=== PATIENT | male | born 1955 | race Hispanic/Latino ===

== ENCOUNTER 2017-04-03 18:33 | Inpatient (IN) | payer OTHER ==
[2017-04-03] MEDS ORDERED: NACL 0.9% 1000 ML 1,000 ML IV ONE ×2 (18:39→21:19)
[2017-04-03] MEDS ORDERED: ZOFRAN IV ONE ×2 (18:40→23:10)
--- NOTE | 2017-04-03 18:44 | Emergency Department Report ---
Entered by ZAHRA DAY, acting as scribe for JOSIE GOINS NP. Chief Complaint: Nausea/Vomiting/Diarrhea Stated Complaint: CANT TALK/WALK/SWEATS Time Seen by Provider: 04/03/17 18:38 - HPI History of Present Illness: 61 y/o male presents with n/v at 1730 after working out in the sun all day today. Pt is actively vomiting here in ED. Sx include diaphoresis. - ROS Review of Systems: +n/v +diaphoresis - Exam Physical Exam: Pt is actively vomiting. A and O x4, no focal weakness MSE screening note: Focused history and physical exam performed. Due to findings the following was ordered: ekg, labs ED Disposition for MSE Condition: Stable This documentation as recorded by the scribe,ZAHRA DAY,accurately reflects the service I personally performed and the decisions made by ,JOSIE GOINS , ORDER ENTRY SPECIALIST.
[2017-04-03 19:23] LABS: Basophils % (Auto) 0.7 % (0.0-1.8); Eosinophils % (Auto) 0.3 % (0.0-4.3); Hematocrit 49.2 % (35.5-45.6); Hemoglobin 16.5 gm/dl (11.8-15.2); Mean Corpuscular HGB Conc 34 % (32-34); Mean Corpuscular Hemoglobin 31 pg (28-32); Mean Corpuscular Volume 91 fl (84-94); Platelet Count 225 K/mm3 (140-440); Red Blood Count 5.39 M/mm3 (3.65-5.03); Red Cell Distribution Width 13.1 % (13.2-15.2); White Blood Count 17.4 K/mm3 (4.5-11.0)
[2017-04-03 19:35] LABS: Alanine Aminotransferase 24 units/L (7-56); Albumin 4.9 g/dL (3.9-5); Albumin/Globulin Ratio 1.4 %; Alkaline Phosphatase 124 units/L (35-129); Anion Gap 29 mmol/L; Blood Urea Nitrogen 12 mg/dL (9-20); Calcium 10.6 mg/dL (8.4-10.2); Carbon Dioxide 19 mmol/L (22-30); Chloride 100.7 mmol/L (98-107); Creatine Kinase 266 units/L (55-170); Glucose 140 mg/dL (75-100); Lipase 17 units/L (13-60); Potassium 4.3 mmol/L (3.6-5.0); Sodium 144 mmol/L (137-145); Total Protein 8.3 g/dL (6.3-8.2)
[2017-04-03] MEDS ORDERED: ZOFRAN ONE (20:53)
[2017-04-03 21:41] LABS: Bilirubin,Urine NEG (Negative); Blood,Urine NEG (Negative); Ketones,Urine 20 mg/dL (Negative); Leukocyte Esterase,Urine NEG (Negative); Mucus,Urine 1+ /HPF; Nitrite,Urine NEG (Negative); Urobilinogen,Urine < 2.0 mg/dL (<2.0)
--- NOTE | 2017-04-03 22:29 | Cat Scan Report ---
FINAL REPORT PROCEDURE: CT ABDOMEN PELVIS W CON TECHNIQUE: Computerized axial tomography of the abdomen and pelvis was performed after the IV injection of iodinated nonionic contrast. HISTORY: abd pain COMPARISON: No prior studies are available for comparison. FINDINGS: Mild hypoventilatory changes are seen in the lower lungs. A rounded density is seen in the right lung base on the axial imaging but appears more linear on reconstructed sagittal and coronal images. It is probably atelectasis. Other mild areas of atelectasis are seen in the right middle lobe, left lingular, and both CP angles. There is likely a small hiatus hernia and there could be mild wall edema within the distal esophagus as can be seen with esophagitis. Spleen appears normal. There is fatty infiltration of the liver. There is a vague area of hyperdensity seen in the left hepatic lobe that could be 1.8 x 0.9 cm hemangioma. May be focal area of fatty sparing. A similar area is seen in the inferior left hepatic lobe near the gallbladder fossa measuring 1.1 cm in greatest dimension. Correlation with ultrasound appearance may be useful. Gallbladder wall appears slightly prominent and cholecystitis is not completely excluded. No gallstones or biliary ductal dilation is seen. Pancreas appears normal. Adrenal glands and abdominal aorta are normal in size. No renal abnormality is seen. Mild changes of gastritis in the region of the antrum of the stomach are not excluded. Normal appendix is seen. There is suggestion of mild wall thickening in the rectum which could be from proctitis. It may just be from underdistention. No other colonic wall thickening is seen. Bladder appears normal. Prostate gland appears normal in size. No small bowel dilation is seen. IMPRESSION: Possible wall edema is seen within the distal esophagus and antrum of the stomach. Findings of esophagitis and gastritis are not excluded. Correlation with upper GI series or endoscopy is recommended. Two hyperdense areas are seen in the left hepatic lobe and are probably areas of focal fatty sparing or hemangioma. Further evaluation with ultrasound is recommended. Gallbladder is not fully distended and wall appears mildly thickened. Cholecystitis is not excluded which could be evaluated with ultrasound, also. There may be rectal wall thickening as can be seen with proctitis. Appearance could be artifactual and due to underdistention of the rectum, though.
[2017-04-03] MEDS ORDERED: DILAUDID IV ONE (23:10)
[2017-04-04] MEDS ORDERED: LEVAQUIN 750MG/150ML 750 MG/150 ML BAG IV ONE (00:22)
--- NOTE | 2017-04-04 00:22 | Emergency Department Report ---
HPI - General Chief Complaint: Neuro Symptoms/Deficit Time Seen by Provider: 04/03/17 18:38 - HPI HPI: Patient complains of generalized weakness, nausea, vomiting and abdominal pain after walking outside all day today. Patient also complained of cramping all over. Patient does have a history of blood pressure, diabetes. He stated that he is compliant with medication and never has prior similar symptoms. ED Past Medical Hx - Past Medical History Previous Medical History?: Yes Additional medical history: Back pain, Neck pain - Surgical History Past Surgical History?: No - Social History Smoking Status: Current Every Day Smoker - Medications Home Medications: Home Medications Medication Instructions Recorded Confirmed Last Taken Type No Known Home Medications [No 04/04/17 04/04/17 Unknown History Reported Home Medications] ED Review of Systems ROS: Stated complaint: CANT TALK/WALK/SWEATS Other details as noted in HPI Physical Exam - Physical Exam Vital Signs: Vital Signs 04/03/17 04/03/17 04/03/17 18:50 20:34 20:40 Temperature 97.6 F Pulse Rate 105 H Respiratory 22 Rate Blood Pressure 143/103 156/97 Blood Pressure [Right] O2 Sat by Pulse 99 100 94 Oximetry 04/03/17 04/03/17 04/03/17 20:50 20:58 21:00 Temperature Pulse Rate 67 Respiratory 20 Rate Blood Pressure 182/113 168/96 Blood Pressure 182/113 [Right] O2 Sat by Pulse 99 99 99 Oximetry 04/03/17 04/03/17 04/03/17 21:10 21:20 21:30 Temperature Pulse Rate Respiratory Rate Blood Pressure 168/96 142/87 170/94 Blood Pressure [Right] O2 Sat by Pulse 92 96 98 Oximetry 04/03/17 04/03/17 04/03/17 21:40 21:53 22:06 Temperature Pulse Rate 84 Respiratory Rate Blood Pressure 142/87 142/87 Blood Pressure [Right] O2 Sat by Pulse 93 99 Oximetry 04/03/17 04/03/17 04/03/17 22:10 22:20 22:30 Temperature Pulse Rate Respiratory Rate Blood Pressure 142/87 175/111 132/87 Blood Pressure [Right] O2 Sat by Pulse 100 98 79 L Oximetry 04/03/17 04/03/17 04/03/17 22:40 22:50 23:30 Temperature Pulse Rate Respiratory 18 20 Rate Blood Pressure 170/94 177/118 Blood Pressure [Right] O2 Sat by Pulse 95 99 Oximetry Physical Exam: Gen. alert and oriented 3 in no distress Head atraumatic normocephalic Eyes PERR LA EOMI Chest regular rate and rhythm normal S1-S2 lungs clear bilaterally Abdomen soft nondistended Back no point tenderness paravertebral tenderness Neuro no focal deficit. Psych normal mood. ED Course Vital Signs 04/03/17 04/03/17 04/03/17 18:50 20:34 20:40 Temperature 97.6 F Pulse Rate 105 H Respiratory 22 Rate Blood Pressure 143/103 156/97 Blood Pressure [Right] O2 Sat by Pulse 99 100 94 Oximetry 04/03/17 04/03/17 04/03/17 20:50 20:58 21:00 Temperature Pulse Rate 67 Respiratory 20 Rate Blood Pressure 182/113 168/96 Blood Pressure 182/113 [Right] O2 Sat by Pulse 99 99 99 Oximetry 04/03/17 04/03/17 04/03/17 21:10 21:20 21:30 Temperature Pulse Rate Respiratory Rate Blood Pressure 168/96 142/87 170/94 Blood Pressure [Right] O2 Sat by Pulse 92 96 98 Oximetry 04/03/17 04/03/17 04/03/17 21:40 21:53 22:06 Temperature Pulse Rate 84 Respiratory Rate Blood Pressure 142/87 142/87 Blood Pressure [Right] O2 Sat by Pulse 93 99 Oximetry 04/03/17 04/03/17 04/03/17 22:10 22:20 22:30 Temperature Pulse Rate Respiratory Rate Blood Pressure 142/87 175/111 132/87 Blood Pressure [Right] O2 Sat by Pulse 100 98 79 L Oximetry 04/03/17 04/03/17 04/03/17 22:40 22:50 23:30 Temperature Pulse Rate Respiratory 18 20 Rate Blood Pressure 170/94 177/118 Blood Pressure [Right] O2 Sat by Pulse 95 99 Oximetry ED Medical Decision Making - Lab Data Result diagrams: 04/05/17 06:00 04/05/17 06:00 Critical care attestation.: If time is entered above; I have spent that time in minutes in the direct care of this critically ill patient, excluding procedure time. ED Disposition Clinical Impression: Severe dehydration, Abdominal pain Disposition: OP ADMIT IP TO THIS HOSP Is pt being admited?: Yes Does the pt Need Aspirin: No Condition: Stable
[2017-04-04] MEDS ORDERED: DILAUDID IV PRN (01:19)
[2017-04-04] MEDS ORDERED: ZOFRAN IV PRN (01:20)
[2017-04-04] MEDS ORDERED: TYLENOL PO PRN (01:21)
[2017-04-04] MEDS ORDERED: FLAGYL 500 MG/100 ML 500 MG/100 ML BAG IV SCH (02:00)
[2017-04-04] MEDS ORDERED: D50W (25GM) IV PRN (05:50)
[2017-04-04] MEDS: NACL 0.9% 1000 ML 1,000 ML IV SCH ×2 (07:55→18:39)
--- NOTE | 2017-04-04 08:08 | History and Physical Report ---
CHIEF COMPLAINT: Nausea, vomiting. Other complaints include abdominal pain. HISTORY OF PRESENTING ILLNESS: The patient is a 61-year-old male who was having nausea and vomiting with abdominal pain and presented to the Emergency Room and he said he has been walking outside the house all day. He started feeling generalized body ache with nausea, vomiting and abdominal pain. There was no history of fever; however, denies history of diaphoresis and no history of chest pain or shortness of breath. The patient presented to the Emergency Room. PAST MEDICAL HISTORY: Pertinent for hypertension and diabetes mellitus. PAST SURGICAL HISTORY: Unremarkable. FAMILY HISTORY: Noncontributory. SOCIAL HISTORY: The patient does not smoke, does not drink alcohol, and does not use illicit drug. MEDICATIONS: The patient's home medications are not known. ALLERGIES: The patient is allergic to codeine. REVIEW OF SYSTEMS: CONSTITUTIONAL: There is no fever, no chills. Diaphoresis present. HEENT: There is no headache or sore throat. CARDIOVASCULAR SYSTEM: There is no chest pain or orthopnea. RESPIRATORY SYSTEM: There is no shortness of breath or cough. GASTROINTESTINAL SYSTEM: There is nausea, vomiting, and also diarrhea. MUSCULOSKELETAL SYSTEM: There is generalized body pain with no joint swelling. NEUROLOGICAL SYSTEM: There is no numbness, no dizziness, no altered mental status. DERMATOLOGICAL SYSTEM: There is no skin rash or itching. GENITOURINARY SYSTEM: There is no dysuria, hematuria, or flank pain. Rest of system review is normal. PHYSICAL EXAMINATION: GENERAL: At the time of exam, the patient was found to be alert, oriented x3 and not in acute distress. VITAL SIGNS: Shows normal temperature with pulse of 67, respirations 13, blood pressure , O2 sat of 98% on room air. HEENT: Showed pupils to be equal, round, reactive to light, and accommodation. Extraocular muscles are intact. NECK: Supple with no JVD or carotid bruit. CARDIOVASCULAR SYSTEM: Show first and second heart sounds with no gallops or murmur. RESPIRATORY SYSTEM: Show good air entry on both sides of the lung with no abnormal breath sounds. GASTROINTESTINAL SYSTEM: Show abdomen to be full, soft, nontender with no organomegaly or rigidity. NEUROLOGICAL: Showed no focal deficit. MUSCULOSKELETAL SYSTEM: Show no joint swelling or tenderness. DERMATOLOGICAL SYSTEM: Show no skin rash. GENITOURINARY SYSTEM: Showing no costovertebral angle tenderness. PERTINENT LABORATORY: The patient had urinalysis done that came back unremarkable. The patient's chemistry shows slightly elevated total CPK of 266, normal transaminases. Lactic acid level was normal. The patient's CO2 showed a low value of 19 and renal function test came back unremarkable. Glucose level was 140 and the patient's CBC showed a high white count of 17,400 with slightly elevated hemoglobin of 16.5 and high hematocrit of 49.2. IMAGING STUDIES: The patient had CT of the abdomen done that shows colitis. DIAGNOSES: 1. Colitis. 2. Dehydration. PLAN: The patient will be admitted to medical floor and will be on IV Levaquin 750 mg daily. Also, the patient will be on IV metronidazole 500 mg q. 8 hour and will be on IV normal saline with running at 125 mL an hour. The patient will be on IV Zofran 4 mg every 8 hours for nausea and vomiting and will have a CBC checked this morning. The patient will also be on Tylenol 650 mg by mouth every 4 hours for fever and headache and will be on Accu-Chek a.c. and at bedtime, followed by low-dose sliding scale. The patient will also be on 1800-calorie carbohydrate consistent diet. JOB# [id number] OCN/NTS
--- NOTE | 2017-04-04 08:18 | XRay Report ---
AP CHEST: HISTORY: Shortness of breath Normal heart and mediastinal structures. The lungs are mildly hyperinflated but clear. No pleural effusion or pneumothorax. Normal bony structures. No significant change since 02/15/15. IMPRESSION: Mild hyperinflation. No acute process.
[2017-04-04] MEDS: NOVOLOG SUB-Q SCH ×3 (08:42→17:17)
[2017-04-04] MEDS: LEVAQUIN 750MG/150ML 750 MG/150 ML BAG IV SCH (10:34)
[2017-04-04] MEDS: HEPARIN SUB-Q SCH ×2 (10:35→22:01)
--- NOTE | 2017-04-04 11:45 | Admit Criteria Form ---
Admission Criteria Documentation: ABDOMINAL PAIN Clinical Indications for Admission to Inpatient Care (Place 'X' for any and all applicable criteria): Admission is indicated for ANY ONE of the following(1)(2)(3)(4)(5): [X]I. Inpatient admission required rather than observation care (Also use Abdominal Pain: Observation Care, as appropriate) because of ANY ONE of the following: [ ]a) Severe pain requiring acute inpatient management [ ]b) Identification of etiology/finding that requires inpatient care (eg, aortic dissection, free air) [ ]c) Absent bowel sounds with complete ileus(6) [ ]d) Suspected toxic megacolon [ ]e) Severe electrolyte abnormalities requiring inpatient care [ ]f) High fever or infection requiring inpatient admission as indicated by ANY ONE of following(7)(8): [ ] i) Appropriate outpatient or observational care antimicrobial treatment unavailable, not effective, or not feasible [ ] ii) Documented bacteremia [ ] iii) Temperature > 104.9 degrees F (oral) [ ] iv) T >103.1 F (oral) or < 96.8 F(rectal) that does not respond to all emergency treatment measures [ ]g) Signs of intestinal obstruction [B] [ ]h) Hemodynamic instability [X]i) IV fluid to replace significant ongoing losses (greater than 3 L/m2 per day) (12)(13) [ ]j) Percutaneous or open drainage (eg, abscess, biliary tract ) procedures [ ]k) Parenteral nutrition regimen that must be implemented on inpatient basis [ ]l) Other condition,treatment or monitoring requiring inpatient admission. [ ]II. Peritoneal signs present [ ]III. Surgery needed that cannot be performed on an ambulatory basis. [ ]IV. Evaluation requires patient to not eat or drink for extended period ( eg, more than 24 hours). [ ]V. Contraindications and/or Inappropriate clinical situations for Observational Care in patients with abdominal pain, when ANY ONE of the following is required: [ ]a) Thorough evaluation is required to prevent catastrophic events due to delays in diagnosing (e.g.Mesenteric ischemia) 1,3 [ ]b) Patient with severe pathology or with chronic symptoms unlikely to improve in the ED stay (3) [ ]. General contraindications and/or Inappropriate clinical situations for Observational Care in patients with abdominal pain, when ANY ONE of the following is required: [ ]a) Prediction of prolongation of LOS based on ANY ONE of the following may be considered as a contraindication for observational care 2, 3, 4, 5, 6, 7, 8, 9, 10, 11 [ ]i) Age > 65 yrs. [ ]ii) Patient arriving by ambulance [ ]iii) Patient with high acuity [ ]iv) Patient requiring vital sign monitoring [ ]v) Patient on IV medication [ ]b) Systolic blood pressures 180mmHg 3,12 [ ]c) Patient with altered mental status including delirium and other alteration of consciousness, (3) [ ]d) Patient whose discharge disposition will be to a long term home or rehabilitation home should not be managed in Emergency Department Observation Unit. CMS rule requires 3 days hospital stay before such placement.3,13 [ ]e) Patient with failure to thrive due to broad array of etiologies 3,16,17 [ ]f) Inability to ambulate 3,14 Extended stay beyond goal length of stay may be needed for(2)(3): [ ]a) Persistent abdominal pain with suspected intra-abdominal process [ ]b) Diagnosed condition requiring continued stay (e.g., pancreatitis, complicated diverticulitis) [ ]c) Surgery (e.g., colectomy) The original [facility] content created by [employer] has been revised. The portions of the content which have been revised are identified through the use of italic text or in bold, and [facility] has neither reviewed nor approved the modified material.All other unmodified content is copyright [facility]. Please see references footnoted in the original [facility] edition 2016 Admission Criteria Met: Yes
--- NOTE | 2017-04-04 13:30 | Event Note ---
Date: 04/04/17 Patient seen and examined and monitored distress chest x-ray reviewed , no further nausea vomiting this time. We'll monitor patient for the next 24 hour assistance of counseling provided to the patient the need to quit tobacco use 15 minutes was spent on counseling. Patient verbalized understanding and admission at this time is stable at this discharge in a.m. if remains stable
[2017-04-05] MEDS: NACL 0.9% 1000 ML 1,000 ML IV SCH (02:29)
[2017-04-05 06:24] LABS: Mean Corpuscular HGB Conc 33 % (32-34); Mean Corpuscular Hemoglobin 31 pg (28-32); Mean Corpuscular Volume 92 fl (84-94); Platelet Count 159 K/mm3 (140-440); Red Blood Count 4.26 M/mm3 (3.65-5.03); Red Cell Distribution Width 13.6 % (13.2-15.2); White Blood Count 9.8 K/mm3 (4.5-11.0)
[2017-04-05 06:45] LABS: Anion Gap 17 mmol/L; BUN/Creatinine Ratio 18.75; Blood Urea Nitrogen 15 mg/dL (9-20); Calcium 8.4 mg/dL (8.4-10.2); Carbon Dioxide 24 mmol/L (22-30); Chloride 107.9 mmol/L (98-107); Glucose 81 mg/dL (75-100); Potassium 4.6 mmol/L (3.6-5.0); Sodium 144 mmol/L (137-145)
[2017-04-05] MEDS: NOVOLOG SUB-Q SCH (07:38)
[2017-04-05] MEDS: HEPARIN SUB-Q SCH (09:20)
[2017-04-05] MEDS: LEVAQUIN 750MG/150ML 750 MG/150 ML BAG IV SCH (09:21)
--- NOTE | 2017-04-05 10:40 | Discharge Summary ---
Providers - Providers Date of Admission: 04/04/17 00:23 Date of discharge: 04/05/17 Attending physician: JUANCHO BARRY MD Primary care physician: [facility] ATTENDANT Hospitalization Reason for admission: nausea vomiting with generalized weakness Condition: Stable Hospital course: Patient is a 61-year-old male with past medical history of hypertension and diabetes mellitus who presented to the hospital with nausea vomiting and abdominal pain after walking all day outside and also was significantly weak. On admission, patient had imaging study of the abdomen which showed some colitis , he was treated with fluids, abx and is much improved and ready for discharge. Discharge Diagnosis Colitis Hypertension Diabetes Mellitus Nausea and Vomiting Dehydration Disposition: DC- TO HOME OR SELFCARE Time spent for discharge: 35 mins Core Measure Documentation - Palliative Care Palliative Care/ Comfort Measures: Not Applicable - Core Measures Any of the following diagnoses?: none - VTE Discharge Requirements Deep Vein Thrombosis/Pulmonary Embolism Present on Admission: No Exam - Constitutional Vitals: Temp Pulse Resp BP Pulse Ox 99.8 F H 55 L 20 131/77 97 04/05/17 08:00 04/05/17 08:00 04/05/17 09:31 04/05/17 08:00 04/05/17 08:00 General appearance: Present: no acute distress, well-nourished - EENT Eyes: Present: PERRL, EOM intact ENT: hearing intact, clear oral mucosa - Neck Neck: Present: supple, normal ROM - Respiratory Respiratory effort: normal Respiratory: bilateral: CTA - Cardiovascular Rhythm: regular Heart Sounds: Present: S1 & S2 - Extremities Extremities: no ischemia, pulses intact, pulses symmetrical Peripheral Pulses: within normal limits - Abdominal General gastrointestinal: Present: soft, non-tender, non-distended - Integumentary Integumentary: Present: clear, warm - Musculoskeletal Musculoskeletal: strength equal bilaterally - Psychiatric Psychiatric: appropriate mood/affect - Neurologic Neurologic: CNII-XII intact - Allied Health Allied health notes reviewed: nursing Plan Activity: advance as tolerated, fall precautions Diet: regular Additional Instructions: age appropraite screening to be arranged by PCP Follow up with: PRIMARY CAREMD [Primary Care Provider] - 3-5 Days
[2017-04-05 11:17] VITALS: BP 153/78
== END 2017-04-05 12:30 | disposition home or self-care (01) | DRG 392 ==
LOC: ED 18:33 → 4A 04-04 00:23 → 3A 04-04 01:43
PROVIDERS: ADMIT Internal Medicine; ATTEND Internal Medicine
DX: K52.9 Noninfective gastroenteritis and colitis, unspecified (principal); I10 Essential (primary) hypertension; E11.9 Type 2 diabetes mellitus without complications; E86.0 Dehydration; Z88.8 Allergy status to other drugs, medicaments and biological substances
CPT/HCPCS: 36415; 71010; 74177; 80048; 80053; 81001; 82140; 82550; 82962; 83036; 83690; 85025; 85027; 87040; 93005; 93010; 96361; 96374; 96375; 96376; J1170; J1644; J1956; J2405; J7030; Q9967

== ENCOUNTER 2017-07-18 20:55 | Emergency (ER) | payer SELFPAY ==
[2017-07-19] MEDS ORDERED: TYLENOL ONE (05:50)
[2017-07-19] MEDS ORDERED: REGLAN ONE (05:50)
--- NOTE | 2017-07-19 06:24 | Emergency Department Report ---
Chief Complaint: Neck Pain/Injury Stated Complaint: NECK PAIN Time Seen by Provider: 07/19/17 05:43 - HPI History of Present Illness: 61-year-old male presents with complaint of severe headache radiating from the left side of his neck up to the back of his head. Patient states that this headache is extreme and very uncomfortable. Is awake alert and oriented 3. Denies paresthesias but states that it is pulsatile and getting progressively worse. - ROS Review of Systems: Worsening headache for several days - Exam Vital Signs: Vital Signs 07/19/17 00:36 Temperature 97.2 F L Pulse Rate 83 Respiratory 14 Rate Blood Pressure 121/78 O2 Sat by Pulse 95 Oximetry Physical Exam: Patient is awake alert and oriented 3 pupils equally reactive to light strength 5 out of 5 bilateral upper and lower extremities MSE screening note: Focused history and physical exam performed. Due to findings the following was ordered: Screening Assessment/Plan/Differential Dx: Headache with associated neck pain; differentials include tension headache versus subarachnoid versus vertebrobasilar dissection 1- This initial assessment/diagnostic orders/clinical plan/ treatment(s) is/are subject to change based on pt's health status, clinical progression and re- assessment by fellow clinical providers in the ED. Further treatment and workup at subsequent clinical provers discretion. Patient/guardians urged not to elope from ED as their condition may be serious if not clinically assessed and managed. 2-given patient's location of headache with associated neck pain will evaluate using CTs. CBC, BMP 3-dose of Reglan and Tylenol for headache and will avoid NSAID for now 4-CT head without contrast, CT angiogram head and neck ED Disposition for MSE Condition: Stable Referrals: PRIMARY CARE, [Primary Care Provider] - 3-5 Days
[2017-07-19 08:16] LABS: BUN/Creatinine Ratio 14; Blood Urea Nitrogen 13 mg/dL (9-20); Calcium 9.4 mg/dL (8.4-10.2); Carbon Dioxide 29 mmol/L (22-30); Chloride 105.3 mmol/L (98-107); Glucose 113 mg/dL (75-100); Potassium 5.5 mmol/L (3.6-5.0); Sodium 144 mmol/L (137-145)
[2017-07-19 08:17] LABS: Anion Gap 15 mmol/L
--- NOTE | 2017-07-19 09:28 | Cat Scan Report ---
CT scan of head without IV contrast: History: Worsening headaches. Findings: Ventricles are normal in size and midline in location. No evidence of acute ischemia, hemorrhage or mass. No extra-axial fluid collection. Normal brainstem and cerebellum. Normal sinuses and mastoid air cells. Impression: No acute intracranial abnormality.
[2017-07-19 10:04] LABS: Basophils % (Auto) 1.4 % (0.0-1.8); Eosinophils % (Auto) 2.5 % (0.0-4.3); Hemoglobin 14.6 gm/dl (11.8-15.2); Mean Corpuscular HGB Conc 34 % (32-34); Mean Corpuscular Hemoglobin 31 pg (28-32); Mean Corpuscular Volume 92 fl (84-94); Platelet Count 185 K/mm3 (140-440); Red Cell Distribution Width 13.1 % (13.2-15.2); White Blood Count 9.3 K/mm3 (4.5-11.0)
[2017-07-19] MEDS ORDERED: SUBLIMAZE IV ONE (10:25)
[2017-07-19] MEDS ORDERED: ZOFRAN IV ONE (10:25)
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
[2017-07-19] MEDS ORDERED: DECADRON IV NR (11:00)
[2017-07-19 13:53] VITALS: BP 123/72
== END 2017-07-19 13:53 | disposition home or self-care (01) ==
LOC: ED 20:55
DX: M54.2 Cervicalgia (principal); R51 Headache; G89.29 Other chronic pain; J45.909 Unspecified asthma, uncomplicated; F17.200 Nicotine dependence, unspecified, uncomplicated; Z88.5 Allergy status to narcotic agent
CPT/HCPCS: 36415; 70450; 80048; 85025; 96374; 96375; 99284; J1100; J2405; J2765; J3010

== ENCOUNTER 2018-01-14 05:46 | Emergency (ER) | payer OTHER ==
[2018-01-14 06:16] LABS: Red Blood Count 5.84 M/mm3 (3.65-5.03)
[2018-01-14 06:17] LABS: Basophils # (Auto) 0.1 K/mm3 (0.0-0.1); Basophils % (Auto) 0.8 % (0.0-1.8); Eosinophils % (Auto) 0.1 % (0.0-4.3); Hematocrit 51.9 % (35.5-45.6); Lymphocytes # (Auto) 1.7 K/mm3 (1.2-5.4); Lymphocytes % (Auto) 10.6 % (13.4-35.0); Mean Corpuscular HGB Conc 35 % (32-34); Mean Corpuscular Hemoglobin 31 pg (28-32); Mean Corpuscular Volume 89 fl (84-94); Platelet Count 233 K/mm3 (140-440); Red Cell Distribution Width 13.5 % (13.2-15.2)
[2018-01-14 06:38] LABS: Alanine Aminotransferase 14 units/L (7-56); Albumin 4.9 g/dL (3.9-5); BUN/Creatinine Ratio 21; Blood Urea Nitrogen 23 mg/dL (9-20); Calcium 10.3 mg/dL (8.4-10.2); Hemolysis Index 25; Lipase 21 units/L (13-60)
[2018-01-14 08:21] VITALS: BP 108/88
[2018-01-14 08:59] LABS: Bilirubin,Urine NEG (Negative); Blood,Urine MOD (Negative); Color,Urine Yellow (Yellow); Mucus,Urine 3+ /HPF; Urobilinogen,Urine < 2.0 mg/dL (<2.0)
[2018-01-14 09:04] LABS: Protein,Urine >500 mg/dL (Negative)
--- NOTE | 2018-01-14 09:53 | Emergency Department Report ---
ED N/V/D HPI - General Chief complaint: Abdominal Pain Stated complaint: VOMITING Time Seen by Provider: 01/14/18 09:51 Source: patient Mode of arrival: Wheelchair Limitations: No Limitations - History of Present Illness Initial comments: 62-year-old man has had repeated bouts of nausea and vomiting as well as stabbing generalized mid abdominal pain over the past 3 hiram, which he relates to having had food that may have gone bad in the refrigerator 2 days prior. Pain is intermittent, cramping, with brief periods of relief, but with rapid resumption shortly afterwards. He has been having repeated vomiting, mostly yellowish, which is now clear and fairly dry. He has mostly been dry heaving since that time. Little diarrhea. He has no prior history of gastrointestinal problems, with past medical history of asthma, as well as chronic neck and back pain. MD complaint: nausea, vomiting -: Sudden Description of Vomiting: watery Associated Abdominal Pain: Yes Location: diffuse, periumbillcal Radiation: none Severity: severe Pain Scale: 9 (with cramping) Quality: cramping, aching Consistency: intermittent Worsens with: none Context: possible food poisoning - Related Data Previous Rx's Medication Instructions Recorded Last Taken Type Ondansetron [Zofran Odt] 4 mg PO Q8HR PRN #14 tab.rapdis 07/19/17 Unknown Rx Prednisone [predniSONE 10 mg 10 mg PO .TAPER #1 tab.ds.pk 07/19/17 Unknown Rx (6-Day Pack, 21 Tabs)] oxyCODONE /ACETAMINOPHEN [Percocet 1 tab PO Q6HR PRN #10 tablet 07/19/17 Unknown Rx 5/325] Dicyclomine [Bentyl] 10 mg PO QID PRN #15 capsule 01/14/18 Unknown Rx HYDROcodone/APAP 5-325 [[place]aman 1 each PO Q4HR PRN #15 tablet 01/14/18 Unknown Rx 5/325] Ondansetron [Zofran ODT TAB] 8 mg PO Q8HR PRN #10 tab.rapdis 01/14/18 Unknown Rx Allergies Allergy/AdvReac Type Severity Reaction Status Date / Time codeine Allergy Vomiting Verified 04/03/17 21:52 ED Review of Systems ROS: Stated complaint: VOMITING Other details as noted in HPI Comment: All other systems reviewed and negative Constitutional: malaise, weakness. denies: chills, fever ENT: denies: ear pain, throat pain Respiratory: denies: cough, shortness of breath, wheezing Cardiovascular: denies: chest pain, palpitations Endocrine: no symptoms reported Gastrointestinal: as per HPI Genitourinary: denies: urgency, dysuria Musculoskeletal: denies: back pain, joint swelling, arthralgia Skin: denies: rash, lesions Neurological: denies: headache, weakness, paresthesias Psychiatric: denies: anxiety, depression Hematological/Lymphatic: denies: easy bleeding, easy bruising ED Past Medical Hx - Past Medical History Previous Medical History?: Yes Hx Asthma: Yes Additional medical history: Back pain, Neck pain, smokes cigarettes, occasional marijuana, none recently - Surgical History Past Surgical History?: Yes Additional Surgical History: eye - Social History Smoking Status: Current Every Day Smoker Substance Use Type: None, Marijuana (occasionally, none and past week) - Medications Home Medications: Home Medications Medication Instructions Recorded Confirmed Last Taken Type Ondansetron [Zofran Odt] 4 mg PO Q8HR PRN #14 tab.rapdis 07/19/17 Unknown Rx Prednisone [predniSONE 10 mg 10 mg PO .TAPER #1 tab.ds.pk 07/19/17 Unknown Rx (6-Day Pack, 21 Tabs)] oxyCODONE /ACETAMINOPHEN [Percocet 1 tab PO Q6HR PRN #10 tablet 07/19/17 Unknown Rx 5/325] Dicyclomine [Bentyl] 10 mg PO QID PRN #15 capsule 01/14/18 Unknown Rx HYDROcodone/APAP 5-325 [Seaman 1 each PO Q4HR PRN #15 tablet 01/14/18 Unknown Rx 5/325] Ondansetron [Zofran ODT TAB] 8 mg PO Q8HR PRN #10 tab.rapdis 01/14/18 Unknown Rx ED Physical Exam - General Limitations: No Limitations General appearance: in distress (patient in acute discomfort with abdominal pain and retching during examination.) - Head Head exam: Present: atraumatic, normocephalic - Eye Eye exam: Present: normal appearance - ENT ENT exam: Present: normal orophraynx, mucous membranes dry - Neck Neck exam: Present: normal inspection. Absent: tenderness - Respiratory Respiratory exam: Present: normal lung sounds bilaterally - Cardiovascular Cardiovascular Exam: Present: regular rate - GI/Abdominal GI/Abdominal exam: Present: soft, tenderness (diffuse, nonspecific,), normal bowel sounds (somewhat brisk, but not distinctly hyperactive). Absent: guarding , rebound - Rectal Rectal exam: Present: deferred - Extremities Exam Extremities exam: Present: normal inspection ED Course Vital Signs 01/14/18 01/14/18 01/14/18 05:48 05:50 06:58 Temperature 98.5 F 98.5 F 98.5 F Pulse Rate 99 H 97 H 68 Respiratory 18 18 16 Rate Blood Pressure 146/103 146/106 Blood Pressure 161/91 [Left] O2 Sat by Pulse 98 97 98 Oximetry 01/14/18 07:05 Temperature 98 F Pulse Rate 70 Respiratory 16 Rate Blood Pressure Blood Pressure 108/88 [Left] O2 Sat by Pulse 100 Oximetry - Reevaluation(s) Reevaluation #1: 01/14/18 13:42 Patient resting comfortably, feels significantly improved, abdomen benign on repeat exam. ED Medical Decision Making - Lab Data Result diagrams: 01/14/18 06:00 01/14/18 06:00 - Medical Decision Making Patient has typical findings of acute gastroenteritis with secondary cramping, and was significantly dehydrated on arrival, and significantly improved with hydration with 2 L of fluid, and control of discomfort with antiemetics and analgesics. He is stable for discharge home with treatment with same, with clear fluids for the next 24-48 hours, gradual advancement to bland diet, follow -up with physician if he has any persistent problems. Critical Care Time: No Critical care attestation.: If time is entered above; I have spent that time in minutes in the direct care of this critically ill patient, excluding procedure time. ED Disposition Clinical Impression: Acute gastroenteritis, Severe dehydration Disposition: DC-01 TO HOME OR SELFCARE Is pt being admited?: No Does the pt Need Aspirin: No Condition: Stable Instructions: Gastroenteritis (ED), Dehydration (ED) Prescriptions: Dicyclomine [Bentyl] 10 mg PO QID PRN #15 capsule PRN Reason: cramps HYDROcodone/APAP 5-325 [Seaman 5/325] 1 each PO Q4HR PRN #15 tablet PRN Reason: Pain Ondansetron [Zofran ODT TAB] 8 mg PO Q8HR PRN #10 tab.rapdis PRN Reason: Nausea Referrals: PRIMARY CARE, [Primary Care Provider] - 3-5 Days Time of Disposition: 13:45
[2018-01-14] MEDS ORDERED: NACL 0.9% 1000 ML 1,000 ML IV ONE ×2 (11:26)
[2018-01-14] MEDS ORDERED: DILAUDID IV PRN (11:27)
[2018-01-14] MEDS ORDERED: COMPAZINE IV ONE (12:00)
== END 2018-01-14 14:05 | disposition home or self-care (01) ==
LOC: ED 05:46
DX: K52.89 Other specified noninfective gastroenteritis and colitis (principal); E86.0 Dehydration; J45.909 Unspecified asthma, uncomplicated; F17.200 Nicotine dependence, unspecified, uncomplicated; Z88.5 Allergy status to narcotic agent
CPT/HCPCS: 36415; 80053; 81001; 83690; 85025; 96361; 96374; 99283; J0780; J1170; J7030

== ENCOUNTER 2018-10-30 13:42 | Emergency (ER) | payer OTHER ==
[2018-10-30] MEDS ORDERED: NACL 0.9% 1000 ML 1,000 ML IV ONE (13:47)
[2018-10-30] MEDS ORDERED: MORPHINE IV ONE (13:49)
[2018-10-30] MEDS ORDERED: ZOFRAN IV ONE (13:49)
--- NOTE | 2018-10-30 13:55 | Emergency Department Report ---
ED Chest Pain HPI - General Chief Complaint: Chest Pain Stated Complaint: CHEST PAIN Time Seen by Provider: 10/30/18 13:46 Source: patient, EMS Mode of arrival: Stretcher Limitations: No Limitations - History of Present Illness Initial Comments: Mr. Garcia is a 63 yo male with hx of HTN and DM who presents with severe sharp central chest pain and epigastric pain. Symptoms began 30 minutes prior to arrival. Has been vomiting. Severe symptoms. Received ASA 324 mg per EMS. MD Complaint: chest pain -: Sudden, minutes(s) (30) Onset: during rest Pain Location: substernal Pain Radiation: abdomen Severity: severe Severity scale (0 -10): 9 Quality: sharp Consistency: constant Improves With: nothing Worsens With: nothing re: nausea, vomting Treatments Prior to Arrival: aspirin - Related Data Previous Rx's Medication Instructions Recorded Last Taken Type Ondansetron [Zofran Odt] 4 mg PO Q8HR PRN #14 tab.rapdis 07/19/17 Unknown Rx Prednisone [predniSONE 10 mg 10 mg PO .TAPER #1 tab.ds.pk 07/19/17 Unknown Rx (6-Day Pack, 21 Tabs)] oxyCODONE /ACETAMINOPHEN [Percocet 1 tab PO Q6HR PRN #10 tablet 07/19/17 Unknown Rx 5/325] Dicyclomine [Bentyl] 10 mg PO QID PRN #15 capsule 01/14/18 Unknown Rx HYDROcodone/APAP 5-325 [[place] 1 each PO Q4HR PRN #15 tablet 01/14/18 Unknown Rx 5/325] Ondansetron [Zofran ODT TAB] 8 mg PO Q8HR PRN #10 tab.rapdis 01/14/18 Unknown Rx Famotidine 20 mg PO BID 30 Days #60 tablet 10/30/18 Unknown Rx Allergies Allergy/AdvReac Type Severity Reaction Status Date / Time codeine Allergy Vomiting Verified 04/03/17 21:52 Heart Score - HEART Score History: Slightly suspicious EKG: Non-specific Age: 45-65 Risk factors: 1-2 risk factors Troponin: < normal limit HEART Score: 3 ED Review of Systems ROS: Stated complaint: CHEST PAIN Other details as noted in HPI Comment: All other systems reviewed and negative Constitutional: malaise. denies: fever Cardiovascular: chest pain Gastrointestinal: abdominal pain, nausea, vomiting ED Past Medical Hx - Past Medical History Previous Medical History?: Yes Hx Asthma: Yes Additional medical history: Back pain, Neck pain, smokes cigarettes, occasional marijuana, none recently - Surgical History Additional Surgical History: eye - Social History Smoking Status: Current Every Day Smoker Substance Use Type: None, Marijuana (occasionally, none and past week) - Medications Home Medications: Home Medications Medication Instructions Recorded Confirmed Last Taken Type Ondansetron [Zofran Odt] 4 mg PO Q8HR PRN #14 tab.rapdis 07/19/17 Unknown Rx Prednisone [predniSONE 10 mg 10 mg PO .TAPER #1 tab.ds.pk 07/19/17 Unknown Rx (6-Day Pack, 21 Tabs)] oxyCODONE /ACETAMINOPHEN [Percocet 1 tab PO Q6HR PRN #10 tablet 07/19/17 Unknown Rx 5/325] Dicyclomine [Bentyl] 10 mg PO QID PRN #15 capsule 01/14/18 Unknown Rx HYDROcodone/APAP 5-325 [[place] 1 each PO Q4HR PRN #15 tablet 01/14/18 Unknown Rx 5/325] Ondansetron [Zofran ODT TAB] 8 mg PO Q8HR PRN #10 tab.rapdis 01/14/18 Unknown Rx Famotidine 20 mg PO BID 30 Days #60 tablet 10/30/18 Unknown Rx ED Physical Exam - General Limitations: No Limitations General appearance: alert, in no apparent distress, other (actively retching) - Head Head exam: Present: atraumatic, normocephalic - Eye Eye exam: Present: normal appearance - ENT ENT exam: Present: mucous membranes moist - Neck Neck exam: Present: normal inspection, full ROM. Absent: tenderness, meningismus - Respiratory Respiratory exam: Present: normal lung sounds bilaterally. Absent: respiratory distress, wheezes, rales, stridor - Cardiovascular Cardiovascular Exam: Present: regular rate, normal rhythm, normal heart sounds. Absent: systolic murmur, diastolic murmur, rubs, gallop - GI/Abdominal GI/Abdominal exam: Present: soft, normal bowel sounds. Absent: distended, tenderness, guarding, rebound - Rectal Rectal exam: Present: deferred - Extremities Exam Extremities exam: Present: normal inspection - Back Exam Back exam: Present: normal inspection - Neurological Exam Neurological exam: Present: alert, oriented X3 - Psychiatric Psychiatric exam: Present: normal affect, normal mood - Skin Skin exam: Present: warm, dry, intact, pallor. Absent: rash ED Course Vital Signs 10/30/18 10/30/18 10/30/18 13:54 16:20 18:50 Temperature 97.8 F 97.5 F L Pulse Rate 71 73 76 Respiratory 21 14 14 Rate Blood Pressure 204/109 Blood Pressure 204/109 128/58 110/73 [Left] O2 Sat by Pulse 98 97 96 Oximetry ED Medical Decision Making - Lab Data Result diagrams: 10/30/18 14:07 10/30/18 14:07 - EKG Data 10/30/18 14:38 EKG 1428 Normal sinus rhythm rate 75 beats a minute normal axis normal intervals no ST elevation Q waves in anterior leads - Radiology Data Radiology results: report reviewed Mr. Garcia presents with epigastric chest pain and vomiting. Symptoms improved. Do not suspect ACS. I suspect GI etiology such as gastritis ACS CT abdomen and pelvis revealed mural thickening in the gastric body possibly due to gastritis and PUD. CT chest revealed once in the nodule in the right lung base which will need follow-up in 3 months. Mr. Garcia feels much better. He agrees with discharge home. Prescribed omeprazole. Critical care attestation.: If time is entered above; I have spent that time in minutes in the direct care of this critically ill patient, excluding procedure time. ED Disposition Clinical Impression: Peptic ulcer disease, Lung nodule, Acute gastritis Disposition: DC-01 TO HOME OR SELFCARE Is pt being admited?: No Does the pt Need Aspirin: No Condition: Stable Instructions: Pulmonary Nodules (ED), Gastritis (ED) Additional Instructions: It is very important that you have a doctor repeat CT in 3 months because you have a large lung nodule which could develop into cancer. Prescriptions: Famotidine 20 mg PO BID 30 Days #60 tablet Referrals: ALCIDES CERVANTES MD [Primary Care Provider] - 3-5 Days
[2018-10-30] MEDS ORDERED: HALDOL IV ONE (14:10)
[2018-10-30 14:24] LABS: Basophils # (Auto) 0.1 K/mm3 (0.0-0.1); Basophils % (Auto) 0.9 % (0.0-1.8); Eosinophils % (Auto) 0.1 % (0.0-4.3); Hematocrit 47.4 % (35.5-45.6); Hemoglobin 15.9 gm/dl (11.8-15.2); Lymphocytes # (Auto) 0.9 K/mm3 (1.2-5.4); Lymphocytes % (Auto) 6.1 % (13.4-35.0); Mean Corpuscular HGB Conc 34 % (32-34); Mean Corpuscular Volume 92 fl (84-94); Monocytes # (Auto) 0.7 K/mm3 (0.0-0.8); Monocytes % (Auto) 4.6 % (0.0-7.3); Platelet Count 237 K/mm3 (140-440); Red Blood Count 5.15 M/mm3 (3.65-5.03); Red Cell Distribution Width 13.3 % (13.2-15.2)
[2018-10-30 14:40] LABS: Alanine Aminotransferase 20 units/L (7-56); Albumin 4.5 g/dL (3.9-5); BUN/Creatinine Ratio 16; Blood Urea Nitrogen 16 mg/dL (9-20); Calcium 9.5 mg/dL (8.4-10.2); Hemolysis Index 35
--- NOTE | 2018-10-30 15:37 | XRay Report ---
AP CHEST: HISTORY: chest pain AP view of the chest demonstrates a normal mediastinal and cardiac contour with clear lungs and normal bony and soft tissue structures. IMPRESSION: Unremarkable AP chest.
--- NOTE | 2018-10-30 17:43 | Cat Scan Report ---
FINAL REPORT EXAM: CT CHEST W CON HISTORY: chest pain vomiting COMPARISON: None. TECHNIQUE: Multiple contiguous axial images were obtained through the chest after administration of IV contrast. Reformatted sagittal and coronal images were available for review. FINDINGS: Medical devices: None. Thyroid: Normal. Lymph nodes: No significant mediastinal, hilar, or axillary lymphadenopathy. Vasculature: Normal caliber of the thoracic aorta with a conventional branching pattern of the aortic arch. No evidence of aneurysm or dissection. Normal appearance of the pulmonary artery. No filling d efect to suggest pulmonary embolism. Heart: Normal heart size. Moderate coronary artery calcifications. Other mediastinal structures: Small hiatal hernia. Lung parenchyma: Dependent atelectasis at the bilateral lung bases. Area of scarring in the medial as pect of the right lower lobe. 1 centimeter nodule in the right lower lobe, just above the diaphragm ( series 2, image 89). Airways: Patent. No bronchiectasis. Pleura: Pleural effusion or pneumothorax. Chest wall and spine: No suspicious osseous lesions. No acute fracture or dislocation. Upper Abdomen: No acute abnormality. IMPRESSION: No acute intrathoracic pathology. Normal appearance of the thoracic aorta without evidence of dissection. Normal appearance of the pulmonary artery that evidence of pulmonary embolism. 1 centimeter nodule in the right lung base. According to Fleischner society criteria, follow-up CT at 3 months, PET-CT, or tissue sampling can be considered. Moderate coronary artery calcifications.
--- NOTE | 2018-10-30 18:29 | Cat Scan Report ---
FINAL REPORT EXAM: CT ABDOMEN PELVIS W CON HISTORY: epigastric pain TECHNIQUE: CT examination of the ABDOMEN after IV contrast CT examination of the PELVIS after IV contrast PRIORS: 04/03/2017 FINDINGS: Chest findings can be found in same day chest CT report. Degenerative change in the regional skeleton. No acute fracture. Normal-appearing liver, gallbladder, adrenals, pancreas, and spleen. Intact normal caliber abdominal aorta and IVC. Normal-appearing kidneys and ureters. Very small fat containing umbilical hernia. Small fat containin g left inguinal hernia. No retroperitoneal adenopathy. No evidence of mesenteric mass. Nonspecific slight mural thickening in the mid gastric body. No focal lesion noted. Normal-appearing duodenum. No small bowel distention in the abdomen and pelvis. No pelvic free fluid. Normal-appearing urinary bladder, seminal vesicles, and rectum. Nonspecific slight prominence of the prostate gland without CT evidence of focal lesion. Normal-appearing sigmoid and descending colon. No gross ascites, free air, or colonic distention. Nor mal-appearing cecum, terminal ileum, and appendix. IMPRESSION: Nonspecific mural thickening in the mid gastric body may be related to artifact of decompression. Dif ferential includes edema or gastritis. Consider also peptic ulcer disease. Nonspecific slight prominence of prostate gland
[2018-10-30 18:50] VITALS: BP 110/73
== END 2018-10-30 19:10 | disposition home or self-care (01) ==
LOC: ED 13:42
DX: K29.60 Other gastritis without bleeding (principal); R91.1 Solitary pulmonary nodule; K27.9 Peptic ulcer, site unspecified, unspecified as acute or chronic, without hemorrhage or perforation; J45.909 Unspecified asthma, uncomplicated; F17.200 Nicotine dependence, unspecified, uncomplicated; F12.10 Cannabis abuse, uncomplicated; Z79.899 Other long term (current) drug therapy; Z88.4 Allergy status to anesthetic agent
CPT/HCPCS: 36415; 71045; 71260; 74177; 80053; 83690; 84484; 85025; 93005; 93010; 96361; 96374; 96375; 99285; J1630; J2270; J2405; J7030; Q9967

== ENCOUNTER 2018-12-19 12:19 | Emergency (ER) | payer OTHER ==
--- NOTE | 2018-12-19 12:31 | Emergency Department Report ---
Blank Doc - Documentation Documentation: This is a 63-year-old male that presents with right mid back pain after sneezi ng. Stated he felt a pop sensation. This initial assessment/diagnostic orders/clinical plan/treatment(s) is/are subject to change based on patient's health status, clinical progression and re-assessment by fellow clinical providers in the ED. Further treatment and workup at subsequent clinical providers discretion. Patient/guardians urged not to elope from the ED as their condition may be serious if not clinically assessed and managed. Initial orders include: 1- Patient sent to [facility] for further evaluation and treatment 2- xray
[2018-12-19 12:32] VITALS: BP 153/82
--- NOTE | 2018-12-19 13:52 | XRay Report ---
RIGHT RIBS, 3 VIEWS: History: Right lateral rib pain with cough. Routine views of the rib cage demonstrate normal mineralization with no significant contour abnormalities, fractures or destructive lesions. PA view of the chest demonstrates no underlying cardiopulmonary abnormalities, fluid or pneumothorax. IMPRESSION: Unremarkable right rib series.
--- NOTE | 2018-12-19 14:13 | Emergency Department Report ---
ED General Adult HPI - General Chief complaint: Back Pain/Injury Stated complaint: UPPER RT BACK PAIN Time Seen by Provider: 12/19/18 12:26 Source: patient Mode of arrival: Ambulatory Limitations: No Limitations - History of Present Illness Initial comments: Pt is a 63 yo male who presents to the ED with c/o right posterior rib pain that began two days ago. He states he has had a frequent dry cough and states he felt a "popping sensation" on the right side after frequent coughing. He has associated congestion. He denies any rhinorrhea, fever, CP, or SOB. The patient is a current smoker and smokes 1/2 PPD. He denies any ETOH use or drug use. He denies any recent travel, LE edema, recent surgery, recent immobilization. He denies being on any medications on a daily basis. He states he is allergic to codeine. The patient states he does have seasonal allergies. Severity scale (0 -10): 6 - Related Data Previous Rx's Medication Instructions Recorded Last Taken Type Ondansetron [Zofran ODT TAB] 4 mg PO Q8HR PRN #14 tab.rapdis 07/19/17 Unknown Rx Dicyclomine [Bentyl] 10 mg PO QID PRN #15 capsule 01/14/18 Unknown Rx Ondansetron [Zofran ODT TAB] 8 mg PO Q8HR PRN #10 tab.rapdis 01/14/18 Unknown Rx Famotidine 20 mg PO BID 30 Days #60 tablet 10/30/18 Unknown Rx Benzonatate [Tessalon Perles] 100 mg PO Q8HR PRN #14 capsule 12/19/18 Unknown Rx Cyclobenzaprine [Flexeril] 10 mg PO QHS PRN #10 tablet 12/19/18 Unknown Rx Fluticasone [Flonase] 1 spray NS QDAY #1 bottle 12/19/18 Unknown Rx Ibuprofen 600 mg PO Q8HR PRN #20 tablet 12/19/18 Unknown Rx Prednisone [predniSONE 10 mg 10 mg PO .TAPER #1 tab.ds.pk 12/19/18 Unknown Rx (6-Day Pack, 21 Tabs)] Allergies Allergy/AdvReac Type Severity Reaction Status Date / Time codeine Allergy Vomiting Verified 04/03/17 21:52 ED Review of Systems ROS: Stated complaint: UPPER RT BACK PAIN Other details as noted in HPI Comment: All other systems reviewed and negative ED Past Medical Hx - Past Medical History Previous Medical History?: Yes Hx Asthma: Yes Additional medical history: Back pain, Neck pain, smokes cigarettes, occasional marijuana, none recently - Surgical History Past Surgical History?: Yes Additional Surgical History: eye - Social History Smoking Status: Current Every Day Smoker Substance Use Type: None - Medications Home Medications: Home Medications Medication Instructions Recorded Confirmed Last Taken Type Ondansetron [Zofran ODT TAB] 4 mg PO Q8HR PRN #14 tab.rapdis 07/19/17 Unknown Rx Dicyclomine [Bentyl] 10 mg PO QID PRN #15 capsule 01/14/18 Unknown Rx Ondansetron [Zofran ODT TAB] 8 mg PO Q8HR PRN #10 tab.rapdis 01/14/18 Unknown Rx Famotidine 20 mg PO BID 30 Days #60 tablet 10/30/18 Unknown Rx Benzonatate [Tessalon Perles] 100 mg PO Q8HR PRN #14 capsule 12/19/18 Unknown Rx Cyclobenzaprine [Flexeril] 10 mg PO QHS PRN #10 tablet 12/19/18 Unknown Rx Fluticasone [Flonase] 1 spray NS QDAY #1 bottle 12/19/18 Unknown Rx Ibuprofen 600 mg PO Q8HR PRN #20 tablet 12/19/18 Unknown Rx Prednisone [predniSONE 10 mg 10 mg PO .TAPER #1 tab.ds.pk 12/19/18 Unknown Rx (6-Day Pack, 21 Tabs)] ED Physical Exam - General Limitations: No Limitations General appearance: alert, in no apparent distress - Head Head exam: Present: atraumatic, normocephalic - Eye Eye exam: Present: normal appearance - ENT ENT exam: Present: other (pale boggy turbinates bilaterally ) - Respiratory Respiratory exam: Present: normal lung sounds bilaterally. Absent: respiratory distress, wheezes, rales, rhonchi, stridor, chest wall tenderness, accessory muscle use, decreased breath sounds, prolonged expiratory - Cardiovascular Cardiovascular Exam: Present: regular rate, normal rhythm, normal heart sounds. Absent: systolic murmur, diastolic murmur, rubs, gallop - Back Exam Back exam: Present: normal inspection, other (right posterior rib pain TTP, no obvious deformity, normal breath sounds bilaterally ) - Neurological Exam Neurological exam: Present: alert, oriented X3, CN II-XII intact, normal gait. Absent: motor sensory deficit - Psychiatric Psychiatric exam: Present: normal affect, normal mood - Skin Skin exam: Present: warm, dry, intact ED Course Vital Signs 12/19/18 12:30 Temperature 97.4 F L Pulse Rate 70 Respiratory 18 Rate Blood Pressure 153/82 O2 Sat by Pulse 97 Oximetry ED Medical Decision Making - Lab Data Vital Signs 12/19/18 12:30 Temperature 97.4 F L Pulse Rate 70 Respiratory 18 Rate Blood Pressure 153/82 O2 Sat by Pulse 97 Oximetry - Radiology Data Radiology results: report reviewed Ordering Physician: TAYE MICHAEL NP Date of Service: 12/19/18 Procedure(s): XR ribs UNI w PA Chest 3+V RT Accession Number(s): [id number] cc: TAYE MICHAEL NP Fluoro Time In Minutes: RIGHT RIBS, 3 VIEWS: History: Right lateral rib pain with cough. Routine views of the rib cage demonstrate normal mineralization with no significant contour abnormalities, fractures or destructive lesions. PA view of the chest demonstrates no underlying cardiopulmonary abnormalities, fluid or pneumothorax. IMPRESSION: Unremarkable right rib series. Transcribed By: TTR Dictated By: CELESTINA AGUILAR JR, MD Electronically Authenticated By: CELESTINA AGUILAR JR, MD Signed Date/Time: 12/19/18 7430 - Medical Decision Making Pt is a 63 yo male who presents to the ED with c/o right posterior rib pain that began two days ago. He states he has had a frequent dry cough and states he felt a "popping sensation" on the right side after frequent coughing. He has associated congestion. He denies any rhinorrhea, fever, CP, or SOB. The patient is a current smoker and smokes 1/2 PPD. He denies any ETOH use or drug use. He denies any recent travel, LE edema, recent surgery, recent immobilization. He denies being on any medications on a daily basis. He states he is allergic to codeine. The patient states he does have seasonal allergies. VSS. Normal oxygen saturation, no tachycardia. On exam pt has right posterior rib TTP. XR of the right ribs and CXR with no acute process. Will give pt tx for muscle strain. Advised only to use muscle relaxer at night as needed and do not drive or operate heavy machinery. Advised pt to continue to take deep breaths throughout the day. Pt also has pale, boggy turbinates consistent with allergic rhinitis, will prescribe flonase. Advised pt to please see a primary care doctor in the next 2-3 days. Pt given community resources handout. Also advised to return to the emergency room for any new or worsening symptoms. - Differential Diagnosis fx, dislocation, strain, sprain, URI, Tobacco abuse, Seasonal allergies Critical care attestation.: If time is entered above; I have spent that time in minutes in the direct care of this critically ill patient, excluding procedure time. ED Disposition Clinical Impression: Rib pain on right side, Cough, Tobacco abuse, Muscle strain Allergic rhinitis Qualifiers: Allergic rhinitis trigger: unspecified Allergic rhinitis seasonality: seasonal Qualified Code(s): J30.2 - Other seasonal allergic rhinitis Disposition: TO HOME OR SELFCARE Is pt being admited?: No Does the pt Need Aspirin: No Condition: Stable Instructions: How to Stop Smoking (ED), Muscle Strain (ED), Allergic Rhinitis (ED) Additional Instructions: Please follow up with a primary care doctor in the next 2-3 days. Take medication as prescribed. Only use muscle relaxer at night as needed and do not drive or operate heavy machinery. Continue to take deep breaths throughout the day. You were given a community resources handout. Return to the emergency room for any new or worsening symptoms. Prescriptions: Cyclobenzaprine [Flexeril] 10 mg PO QHS PRN #10 tablet PRN Reason: Muscle Spasm Fluticasone [Flonase] 1 spray NS QDAY #1 bottle Ibuprofen 600 mg PO Q8HR PRN #20 tablet PRN Reason: Pain, Moderate (4-6) Prednisone [predniSONE 10 mg (6-Day Pack, 21 Tabs)] 10 mg PO .TAPER #1 tab.ds.pk Benzonatate [Tessalon Perles] 100 mg PO Q8HR PRN #14 capsule PRN Reason: Cough Referrals: [facility] [Other] - 2-3 Days Time of Disposition: 14:17 Print Language: AZERI
== END 2018-12-19 14:26 | disposition home or self-care (01) ==
LOC: ED 12:19
DX: S29.011A Strain of muscle and tendon of front wall of thorax, initial encounter (principal); J30.2 Other seasonal allergic rhinitis; F17.200 Nicotine dependence, unspecified, uncomplicated; F12.10 Cannabis abuse, uncomplicated; Z88.5 Allergy status to narcotic agent; X58.XXXA Exposure to other specified factors, initial encounter; Y93.89 Activity, other specified; Y92.89 Other specified places as the place of occurrence of the external cause; Y99.8 Other external cause status
CPT/HCPCS: 99283

== ENCOUNTER 2018-12-28 15:04 | Emergency (ER) | payer OTHER ==
[2018-12-28] MEDS ORDERED: ASPIRIN PO ONE (15:34)
--- NOTE | 2018-12-28 16:27 | XRay Report ---
PROCEDURE: XR CHEST 1V AP TECHNIQUE: Chest radiograph, PA and lateral views. HISTORY: Right sided upper back pain upon any movement. Chest Pain COMPARISONS: None currently available. FINDINGS: Cardiac silhouette is within normal limits. There is no effusion. There is no pneumothorax. There is no consolidation. There are no suspicious osseous lesions. Mild dextrocurvature or scoliosis of the thoracic spine. IMPRESSION: * No acute cardiopulmonary findings. * Mild dextrocurvature or scoliosis of the thoracic spine. This document is electronically signed by Ronan Wilkins MD., December 28 2018 04:25:34 PM ET
[2018-12-28] MEDS ORDERED: ZOFRAN IV ONE (17:04)
[2018-12-28] MEDS ORDERED: SUBLIMAZE IV ONE (17:04)
[2018-12-28 17:21] LABS: Hematocrit 51.3 % (35.5-45.6); Hemoglobin 17.1 gm/dl (11.8-15.2); Mean Corpuscular HGB Conc 33 % (32-34); Mean Corpuscular Volume 93 fl (84-94); Platelet Count 288 K/mm3 (140-440); Red Blood Count 5.49 M/mm3 (3.65-5.03); Red Cell Distribution Width 13.1 % (13.2-15.2)
[2018-12-28 17:24] LABS: BUN/Creatinine Ratio 15; Blood Urea Nitrogen 16 mg/dL (9-20); Hemolysis Index 4
--- NOTE | 2018-12-28 17:33 | Emergency Department Report ---
HPI - General Chief Complaint: Nausea/Vomiting/Diarrhea Time Seen by Provider: 12/28/18 16:55 - HPI HPI: Room 3 The patient is a 63-year-old male presenting with a chief complaint of back pain. The patient states approximately one week ago after coughing and feeling a pop in his right upper back pain. Patient came to this hospital at that time had a negative chest x-ray with rib series performed. The patient states his pain is continued to worsen. Patient states his cough is occasionally productive of clear sputum. The patient admits to pleurisy and a subjective fever. The patient gets his pain score 10/10 Location: Right upper back Duration: [See above] Quality: Pain Severity: [See above] Modifying factors: [see above] Context: [see above] Mode of transportation: [not driving] ED Past Medical Hx - Past Medical History Hx Asthma: Yes Additional medical history: Back pain, Neck pain, smokes cigarettes, occasional marijuana, none recently - Surgical History Past Surgical History?: No Additional Surgical History: eye - Family History Family history: no significant - Social History Smoking Status: Current Every Day Smoker (1/2 pack per day) Substance Use Type: Marijuana - Medications Home Medications: Home Medications Medication Instructions Recorded Confirmed Last Taken Type Ondansetron [Zofran ODT TAB] 4 mg PO Q8HR PRN #14 tab.rapdis 07/19/17 Unknown Rx Dicyclomine [Bentyl] 10 mg PO QID PRN #15 capsule 01/14/18 Unknown Rx Ondansetron [Zofran ODT TAB] 8 mg PO Q8HR PRN #10 tab.rapdis 01/14/18 Unknown Rx Famotidine 20 mg PO BID 30 Days #60 tablet 10/30/18 Unknown Rx Benzonatate [Tessalon Perles] 100 mg PO Q8HR PRN #14 capsule 12/19/18 Unknown Rx Cyclobenzaprine [Flexeril] 10 mg PO QHS PRN #10 tablet 12/19/18 Unknown Rx Fluticasone [Flonase] 1 spray NS QDAY #1 bottle 12/19/18 Unknown Rx Ibuprofen 600 mg PO Q8HR PRN #20 tablet 12/19/18 Unknown Rx Prednisone [predniSONE 10 mg 10 mg PO .TAPER #1 tab.ds.pk 12/19/18 Unknown Rx (6-Day Pack, 21 Tabs)] HYDROcodone/APAP 5-325 [[place] 1 - 2 each PO Q6HR PRN #14 tablet 12/28/18 Unknown Rx 5/325] Ibuprofen [Motrin 800 MG tab] 800 mg PO Q8HR PRN #20 tablet 12/28/18 Unknown Rx ED Review of Systems ROS: Stated complaint: BACK PAIN Other details as noted in HPI Constitutional: fever (objective) Eyes: denies: eye pain ENT: denies: throat pain Respiratory: other (pleurisy) Cardiovascular: denies: chest pain Endocrine: no symptoms reported Gastrointestinal: denies: abdominal pain Genitourinary: denies: dysuria Musculoskeletal: back pain Neurological: denies: headache Physical Exam - Physical Exam Vital Signs: Vital Signs 12/28/18 15:17 Temperature 98.1 F Pulse Rate 71 Respiratory 20 Rate Blood Pressure 140/90 O2 Sat by Pulse 99 Oximetry Physical Exam: GENERAL: The patient is well-developed well-nourished male lying on stretcher appearing to be in moderate discomfort HEENT: Normocephalic. Atraumatic. Extraocular motions are intact. Patient has moist mucous membranes. NECK: Supple. Trachea midline CHEST/LUNGS: Clear to auscultation. There is no respiratory distress noted. HEART/CARDIOVASCULAR: Regular. There is no tachycardia. There is no gallop rub or murmur. ABDOMEN: Abdomen is soft, nontender. Patient has normal bowel sounds. There is no abdominal distention. SKIN: There is no rash. There is no edema. There is no diaphoresis. NEURO: The patient is awake, alert, and oriented. The patient is cooperative. The patient has normal speech MUSCULOSKELETAL: There is tenderness to palpation of the right upper back. No crepitus. There is no evidence of acute injury. ED Course Vital Signs 12/28/18 15:17 Temperature 98.1 F Pulse Rate 71 Respiratory 20 Rate Blood Pressure 140/90 O2 Sat by Pulse 99 Oximetry ED Medical Decision Making - Lab Data Result diagrams: 12/28/18 16:21 12/28/18 18:02 Laboratory Tests 12/28/18 12/28/18 12/28/18 16:21 16:21 18:02 WBC 14.2 H RBC 5.49 H Hgb 17.1 H Hct 51.3 H MCV 93 MCH 31 MCHC 33 RDW 13.1 L Plt Count 288 Add Manual Diff Complete Total Counted 100 Seg Neutrophils % Culinary Arts Teacher Seg Neuts % (Manual) 94.0 H Band Neutrophils % 1.0 Lymphocytes % (Manual) 2.0 L Reactive Lymphs % (Man) 1.0 Monocytes % (Manual) 1.0 Eosinophils % (Manual) 1.0 Basophils % (Manual) 0 Metamyelocytes % 0 Myelocytes % 0 Promyelocytes % 0 Blast Cells % 0 Nucleated RBC % Not Reportable Seg Neutrophils # Man 13.3 H Band Neutrophils # 0.1 Lymphocytes # (Manual) 0.3 L Abs React Lymphs (Man) 0.1 Monocytes # (Manual) 0.1 Eosinophils # (Manual) 0.1 Basophils # (Manual) 0.0 Metamyelocytes # 0.0 Myelocytes # 0.0 Promyelocytes # 0.0 Blast Cells # 0.0 WBC Morphology Not Reportable Hypersegmented Neuts Not Reportable Hyposegmented Neuts Not Reportable Hypogranular Neuts Not Reportable Smudge Cells Not Reportable Toxic Granulation Not Reportable Toxic Vacuolation Not Reportable Dohle Bodies Not Reportable Pelger-Huet Anomaly Not Reportable Aleksander Rods Not Reportable Platelet Estimate Appears normal Clumped Platelets Not Reportable Plt Clumps, EDTA Not Reportable Large Platelets Not Reportable Giant Platelets Not Reportable Platelet Satelliting Not Reportable Plt Morphology Comment Not Reportable RBC Morphology Normal Dimorphic RBCs Not Reportable Polychromasia Not Reportable Hypochromasia Not Reportable Poikilocytosis Not Reportable Anisocytosis Not Reportable Microcytosis Not Reportable Macrocytosis Not Reportable Spherocytes Not Reportable Pappenheimer Bodies Not Reportable Sickle Cells Not Reportable Target Cells Not Reportable Tear Drop Cells Not Reportable Ovalocytes Not Reportable Helmet Cells Not Reportable Joseph-Ebony Bodies Not Reportable [place] Rings Not Reportable Jamie Cells Not Reportable Bite Cells Not Reportable Crenated Cell Not Reportable Elliptocytes Not Reportable Acanthocytes (Spur) Not Reportable Rouleaux Not Reportable Hemoglobin C Crystals Not Reportable Schistocytes Not Reportable Malaria parasites Not Reportable Bryon Bodies Not Reportable Hem Pathologist Commnt No Sodium 145 Potassium 6.3 H* Chloride 103.3 Carbon Dioxide 23 Anion Gap 25 BUN 16 Creatinine 1.1 Estimated GFR > 60 BUN/Creatinine Ratio 15 Glucose 172 H Calcium 11.0 H Troponin T < 0.010 < 0.010 12/28/18 18:02 WBC RBC Hgb Hct MCV MCH MCHC RDW Plt Count Add Manual Diff Total Counted Seg Neutrophils % Seg Neuts % (Manual) Band Neutrophils % Lymphocytes % (Manual) Reactive Lymphs % (Man) Monocytes % (Manual) Eosinophils % (Manual) Basophils % (Manual) Metamyelocytes % Myelocytes % Promyelocytes % Blast Cells % Nucleated RBC % Seg Neutrophils # Man Band Neutrophils # Lymphocytes # (Manual) Abs React Lymphs (Man) Monocytes # (Manual) Eosinophils # (Manual) Basophils # (Manual) Metamyelocytes # Myelocytes # Promyelocytes # Blast Cells # WBC Morphology Hypersegmented Neuts Hyposegmented Neuts Hypogranular Neuts Smudge Cells Toxic Granulation Toxic Vacuolation Dohle Bodies Pelger-Huet Anomaly Aleksander Rods Platelet Estimate Clumped Platelets Plt Clumps, EDTA Large Platelets Giant Platelets Platelet Satelliting Plt Morphology Comment RBC Morphology Dimorphic RBCs Polychromasia Hypochromasia Poikilocytosis Anisocytosis Microcytosis Macrocytosis Spherocytes Pappenheimer Bodies Sickle Cells Target Cells Tear Drop Cells Ovalocytes Helmet Cells Joseph-Ebony Bodies [place] Rings Jamie Cells Bite Cells Crenated Cell Elliptocytes Acanthocytes (Spur) Rouleaux Hemoglobin C Crystals Schistocytes Malaria parasites Bryon Bodies Hem Pathologist Commnt Sodium Potassium 4.0 D Chloride Carbon Dioxide Anion Gap BUN Creatinine Estimated GFR BUN/Creatinine Ratio Glucose Calcium Troponin T - EKG Data -: EKG Interpreted by Me EKG shows normal: sinus rhythm Rate: normal - EKG Data When compared to previous EKG there are: previous EKG unavailable Interpretation: normal EKG - Radiology Data Radiology results: report reviewed (chest x-ray, CT chest), image reviewed (chest x-ray, CT chest) interpreted by me: Chest x-ray-no focal infiltrates, no pneumothorax [facility] [address] [place] [address] XRay Report Signed Patient: RAÚL AUGUSTINE MR#: [id number] : 1955 Acct:[id number] Age/Sex: 63 / M ADM Date: 12/28/18 Loc: ED Attending Dr: Cruz melgar Physician: ED DOC, MD Date of Service: 12/28/18 Procedure(s): XR chest 1V ap Accession Number(s): [id number] cc: MOIZ CABRERA MD Fluoro Time In Minutes: PROCEDURE: XR CHEST 1V AP TECHNIQUE: Chest radiograph, PA and lateral views. HISTORY: Right sided upper back pain upon any movement. Chest Pain COMPARISONS: None currently available. FINDINGS: Cardiac silhouette is within normal limits. There is no effusion. There is no pneumothorax. There is no consolidation. There are no suspicious osseous lesions. Mild dextrocurvature or scoliosis of the thoracic spine. IMPRESSION: * No acute cardiopulmonary findings. * Mild dextrocurvature or scoliosis of the thoracic spine. This document is electronically signed by Ronan Renee MD., December 28 2018 04:25:34 PM ET Transcribed By: TYM Dictated By: RONAN RENEE MD Electronically Authenticated By: RONAN RENEE MD Signed Date/Time: 12/28/181626 DD/ 14 TD/TT: 12/28/181614 [place] [address] Cat Scan Report Signed Patient: RAÚL AUGUSTINE MR#: [id number] : 1955 Acct:[id number] Age/Sex: 63 / M ADM Date: 12/28/18 Loc: ED Attending Dr: Ordering Physician: BAYRON QUEVEDO MD Date of Service: 12/28/18 Procedure(s): CT angio chest Accession Number(s): [id number] cc: BAYRON QUEVEDO MD PROCEDURE: CT ANGIO CHEST TECHNIQUE: Following administration of IV contrast axial helical imaging was performed through the chest with sagittal and coronal reformatted images and maximum intensity projection images obtained. HISTORY: right upper back pain, pleurisy COMPARISONS: Chest x-ray also performed today and CT chest dated October 30, 2018 the report of the CT chest is not available for review at the time of this dictation. FINDINGS: Visualization of fine detail in portions of the chest is somewhat limited by motion artifact. There is no evidence of infiltrate, pneumothorax or pleural fluid collection. There is dependent atelectasis in both lung bases. The trachea and bronchi are patent. The heart is normal size. There is evidence of atherosclerotic vascular calcification of the coronary arteries. The thoracic aorta is normal in appearance. There is no evidence of intrathoracic adenopathy. No filling defects are demonstrated within the pulmonary arteries to suggest the presence of pulmonary artery emboli. However, peripheral segmental pulmonary artery emboli in the lower lobes bilaterally could be missed or overcalled due to motion artifact. There is an air-fluid level in the mid and distal esophagus suggestive of gastroesophageal reflux. There is a suggestion of increased thickness of the wall of the distal esophagus at the gastroesophageal junction.. The visualized portion of the upper abdomen is unremarkable. The bony structures are unremarkable. IMPRESSION: 1. Study somewhat degraded by motion artifact. 2. No evidence of pulmonary artery emboli. However, peripheral segmental pulmonary artery emboli in the lower lobes bilaterally could be missed or overcalled due to motion artifact. 3. Findings suggestive of gastroesophageal reflux with the appearance of mild increased thickness of the wall of the distal esophagus of the gastroesophageal junction. 4. No other evidence of an acute intrathoracic process. 5. Evidence of atherosclerotic vascular calcification of the coronary arteries. This document is electronically signed by Diana Mcgowan MD., December 28 2018 06:56:51 PM ET Transcribed By: ED Dictated By: DIANA MCGOWAN MD Electronically Authenticated By: DIANA MCGOWAN MD Signed Date/Time: 12/28/181857 DD/ 05 TD/TT: 12/28/181847 - Differential Diagnosis rib fracture, pneumonia, pleurisy, PE Critical care attestation.: If time is entered above; I have spent that time in minutes in the direct care of this critically ill patient, excluding procedure time. ED Disposition Clinical Impression: Muscle strain of right upper back Disposition: DC-01 TO HOME OR SELFCARE Is pt being admited?: No Does the pt Need Aspirin: No Condition: Stable Instructions: Muscle Strain (ED) Additional Instructions: Return to the emergency department immediately should you develop worsening symptoms, fever, inability to tolerate food or liquid or any other concerns. Prescriptions: Ibuprofen [Motrin 800 MG tab] 800 mg PO Q8HR PRN #20 tablet PRN Reason: Pain, Moderate (4-6) HYDROcodone/APAP 5-325 [[place] 5/325] 1 - 2 each PO Q6HR PRN #14 tablet PRN Reason: Pain Referrals: PRIMARY CARE, [Referring] - 3-5 Days ADARSH SOTELO MD [Staff Physician] - 3-5 Days Time of Disposition: 19:22
[2018-12-28 18:11] LABS: Total Cells Counted 100
[2018-12-28 18:12] LABS: Band Neutrophils # (Manual) 0.1 K/mm3; Basophils % (Manual) 0 % (0.0-1.8); RBC Morphology Normal
[2018-12-28 18:14] VITALS: BP 138/72
--- NOTE | 2018-12-28 18:58 | Cat Scan Report ---
PROCEDURE: CT ANGIO CHEST TECHNIQUE: Following administration of IV contrast axial helical imaging was performed through the c hest with sagittal and coronal reformatted images and maximum intensity projection images obtained. HISTORY: right upper back pain, pleurisy COMPARISONS: Chest x-ray also performed today and CT chest dated October 30, 2018 the report of the CT chest is not available for review at the time of this dictation. FINDINGS: Visualization of fine detail in portions of the chest is somewhat limited by motion artifact. There is no evidence of infiltrate, pneumothorax or pleural fluid collection. There is dependent atelectasis in both lung bases. The trachea and bronchi are patent. The heart is normal size. There is evidence of atherosclerotic vascular calcification of the coronary arteries. The thoracic aorta is normal in appearance. There is no evidence of intrathoracic adenopathy. No filling defects are demonstrated within the pulmonary arteries to suggest the presence of pulmonar y artery emboli. However, peripheral segmental pulmonary artery emboli in the lower lobes bilaterally could be missed or overcalled due to motion artifact. There is an air-fluid level in the mid and distal esophagus suggestive of gastroesophageal reflux. There is a suggestion of increased thickness of the wall of the distal esophagus at the gastroesophag eal junction.. The visualized portion of the upper abdomen is unremarkable. The bony structures are unremarkable. IMPRESSION: 1. Study somewhat degraded by motion artifact. 2. No evidence of pulmonary artery emboli. However, peripheral segmental pulmonary artery emboli in t he lower lobes bilaterally could be missed or overcalled due to motion artifact. 3. Findings suggestive of gastroesophageal reflux with the appearance of mild increased thickness of the wall of the distal esophagus of the gastroesophageal junction. 4. No other evidence of an acute intrathoracic process. 5. Evidence of atherosclerotic vascular calcification of the coronary arteries. This document is electronically signed by Diana Mcgowan MD., December 28 2018 06:56:51 PM ET
[2018-12-28] MEDS ORDERED: NORCO 5/325 PO ONE (19:28)
[2018-12-28] MEDS ORDERED: IBUPROFEN PO ONE (19:28)
== END 2018-12-28 20:30 | disposition home or self-care (01) ==
LOC: ED 15:04
DX: S29.012A Strain of muscle and tendon of back wall of thorax, initial encounter (principal); J45.909 Unspecified asthma, uncomplicated; F17.210 Nicotine dependence, cigarettes, uncomplicated; F12.10 Cannabis abuse, uncomplicated; Z79.899 Other long term (current) drug therapy; Z88.6 Allergy status to analgesic agent; X58.XXXA Exposure to other specified factors, initial encounter; Y93.89 Activity, other specified; Y92.89 Other specified places as the place of occurrence of the external cause; Y99.8 Other external cause status
CPT/HCPCS: 36415; 71045; 71275; 80048; 84132; 84484; 85007; 85025; 93005; 93010; 96374; 96375; 99285; J2405; J3010

== ENCOUNTER 2019-03-22 20:35 | Emergency (ER) | payer MEDICAID, OTHER ==
[2019-03-22] MEDS ORDERED: ASPIRIN PO ONE (20:42)
[2019-03-22 20:57] LABS: Basophils # (Auto) 0.1 K/mm3 (0.0-0.1); Basophils % (Auto) 0.7 % (0.0-1.8); Eosinophils % (Auto) 0.1 % (0.0-4.3); Hematocrit 50.4 % (35.5-45.6); Hemoglobin 16.9 gm/dl (11.8-15.2); Lymphocytes # (Auto) 1.3 K/mm3 (1.2-5.4); Lymphocytes % (Auto) 8.3 % (13.4-35.0); Mean Corpuscular HGB Conc 34 % (32-34); Mean Corpuscular Volume 91 fl (84-94); Monocytes # (Auto) 0.8 K/mm3 (0.0-0.8); Platelet Count 236 K/mm3 (140-440); Red Blood Count 5.52 M/mm3 (3.65-5.03); Red Cell Distribution Width 13.4 % (13.2-15.2)
--- NOTE | 2019-03-22 21:01 | Emergency Department Report ---
ED General Adult HPI - General Chief complaint: Dizziness Stated complaint: HIGH BP/RAPID HB/NUMBNESS Time Seen by Provider: 03/22/19 20:55 Source: patient, family Mode of arrival: Ambulatory Limitations: No Limitations - History of Present Illness Initial comments: 63 y.o. male with history of CAD presents with complaint of dizziness. Patient states that he was outside working in the sun. Patient states that for two hours he had dizziness. Patient denies syncope. Patient complains of multiple episodes of vomiting with no hematemesis. patient has had no hematochezia. Patient denies any associated shortness of breath. Patient states that he had no symptoms prior. Patient states that he went to [facility] and checked his blood pressure and it was elevated also. Patient denies fever. - Related Data Previous Rx's Medication Instructions Recorded Last Taken Type Ondansetron [Zofran ODT TAB] 4 mg PO Q8HR PRN #14 tab.rapdis 07/19/17 Unknown Rx Dicyclomine [Bentyl] 10 mg PO QID PRN #15 capsule 01/14/18 Unknown Rx Ondansetron [Zofran ODT TAB] 8 mg PO Q8HR PRN #10 tab.rapdis 01/14/18 Unknown Rx Famotidine 20 mg PO BID 30 Days #60 tablet 10/30/18 Unknown Rx Benzonatate [Tessalon Perles] 100 mg PO Q8HR PRN #14 capsule 12/19/18 Unknown Rx Cyclobenzaprine [Flexeril] 10 mg PO QHS PRN #10 tablet 12/19/18 Unknown Rx Fluticasone [Flonase] 1 spray NS QDAY #1 bottle 12/19/18 Unknown Rx Ibuprofen 600 mg PO Q8HR PRN #20 tablet 12/19/18 Unknown Rx Prednisone [predniSONE 10 mg 10 mg PO .TAPER #1 tab.ds.pk 12/19/18 Unknown Rx (6-Day Pack, 21 Tabs)] HYDROcodone/APAP 5-325 [[place] 1 - 2 each PO Q6HR PRN #14 tablet 12/28/18 Unknown Rx 5/325] Ibuprofen [Motrin 800 MG tab] 800 mg PO Q8HR PRN #20 tablet 12/28/18 Unknown Rx Allergies Allergy/AdvReac Type Severity Reaction Status Date / Time codeine Allergy Vomiting Verified 03/22/19 20:45 ED Review of Systems ROS: Stated complaint: HIGH BP/RAPID HB/NUMBNESS Other details as noted in HPI Constitutional: denies: chills, fever Eyes: denies: eye pain, eye discharge, vision change ENT: denies: ear pain, throat pain Respiratory: denies: cough, shortness of breath, wheezing Cardiovascular: denies: chest pain, palpitations Endocrine: no symptoms reported Gastrointestinal: denies: abdominal pain, nausea, diarrhea Genitourinary: denies: urgency, dysuria Musculoskeletal: denies: back pain, joint swelling, arthralgia Skin: denies: rash, lesions Neurological: other (numbness) Psychiatric: denies: anxiety, depression Hematological/Lymphatic: denies: easy bleeding, easy bruising ED Past Medical Hx - Past Medical History Hx Asthma: Yes Additional medical history: Back pain, Neck pain, smokes cigarettes, occasional marijuana, none recently - Surgical History Additional Surgical History: eye - Social History Smoking Status: Current Every Day Smoker Substance Use Type: None - Medications Home Medications: Home Medications Medication Instructions Recorded Confirmed Last Taken Type Ondansetron [Zofran ODT TAB] 4 mg PO Q8HR PRN #14 tab.rapdis 07/19/17 Unknown Rx Dicyclomine [Bentyl] 10 mg PO QID PRN #15 capsule 01/14/18 Unknown Rx Ondansetron [Zofran ODT TAB] 8 mg PO Q8HR PRN #10 tab.rapdis 01/14/18 Unknown Rx Famotidine 20 mg PO BID 30 Days #60 tablet 10/30/18 Unknown Rx Benzonatate [Tessalon Perles] 100 mg PO Q8HR PRN #14 capsule 12/19/18 Unknown Rx Cyclobenzaprine [Flexeril] 10 mg PO QHS PRN #10 tablet 12/19/18 Unknown Rx Fluticasone [Flonase] 1 spray NS QDAY #1 bottle 12/19/18 Unknown Rx Ibuprofen 600 mg PO Q8HR PRN #20 tablet 12/19/18 Unknown Rx Prednisone [predniSONE 10 mg 10 mg PO .TAPER #1 tab.ds.pk 12/19/18 Unknown Rx (6-Day Pack, 21 Tabs)] HYDROcodone/APAP 5-325 [[place] 1 - 2 each PO Q6HR PRN #14 tablet 12/28/18 Unknown Rx 5/325] Ibuprofen [Motrin 800 MG tab] 800 mg PO Q8HR PRN #20 tablet 12/28/18 Unknown Rx ED Physical Exam - General Limitations: No Limitations General appearance: alert, in no apparent distress, other - Head Head exam: Present: atraumatic, normocephalic - Eye Eye exam: Present: normal appearance - ENT ENT exam: Present: mucous membranes dry - Neck Neck exam: Present: normal inspection - Respiratory Respiratory exam: Present: normal lung sounds bilaterally. Absent: respiratory distress - Cardiovascular Cardiovascular Exam: Present: regular rate, normal rhythm. Absent: systolic murmur, diastolic murmur, rubs, gallop - GI/Abdominal GI/Abdominal exam: Present: soft, normal bowel sounds. Absent: tenderness, guarding, rebound - Rectal Rectal exam: Present: deferred - Extremities Exam Extremities exam: Present: normal inspection - Back Exam Back exam: Present: normal inspection - Neurological Exam Neurological exam: Present: alert, oriented X3, CN II-XII intact - Psychiatric Psychiatric exam: Present: normal affect, normal mood - Skin Skin exam: Present: warm, dry, intact, normal color. Absent: rash ED Course Vital Signs 03/22/19 03/22/19 03/22/19 20:44 21:00 22:00 Temperature 97.4 F L 98 F Pulse Rate 72 76 77 Respiratory 16 16 16 Rate Blood Pressure 150/75 154/95 Blood Pressure 150/92 [Left] O2 Sat by Pulse 99 98 98 Oximetry ED Medical Decision Making - Lab Data Result diagrams: 03/22/19 20:47 03/22/19 20:47 - EKG Data -: EKG Interpreted by Ne EKG shows normal: sinus rhythm Rate: normal - Medical Decision Making Patient received normal saline and zofran therapy while in the ER. Patient noted to be hyperkalemic. Joaquina case discussed with Nephrology doll surgeon and they state that patient is to receive treatment for hyperkalemia. Patient to be admitted to the hospitalist service for continued management and treatment. - Differential Diagnosis STEMI; NSTEMI; Dehydration; Rhabdomyolysis Critical care attestation.: If time is entered above; I have spent that time in minutes in the direct care of this critically ill patient, excluding procedure time. ED Disposition Clinical Impression: Hyperkalemia, Acute renal failure Disposition: OP ADMIT IP TO THIS HOSP Is pt being admited?: Yes Does the pt Need Aspirin: No Condition: Stable Time of Disposition: 22:55 Print Language: HAITIAN
[2019-03-22] MEDS ORDERED: NACL 0.9% 1000 ML 1,000 ML IV ONE ×2 (21:03→22:38)
[2019-03-22] MEDS ORDERED: ZOFRAN IV ONE (21:13)
[2019-03-22 21:27] LABS: BUN/Creatinine Ratio 16; Blood Urea Nitrogen 26 mg/dL (9-20); Hemolysis Index 20
--- NOTE | 2019-03-22 21:31 | XRay Report ---
CHEST 1 VIEW INDICATION / CLINICAL INFORMATION: Chest Pain. COMPARISON: None available. FINDINGS: SUPPORT DEVICES: None. HEART / MEDIASTINUM: No significant abnormality. LUNGS / PLEURA: No significant pulmonary or pleural abnormality. No pneumothorax. ADDITIONAL FINDINGS: The abnormal area in the right lateral seventh rib may be due to old fracture bu t I could not totally exclude expansile lesion. There is an old healed fracture through the left late ral fourth rib as well. IMPRESSION: 1. No acute findings. Signer Name: Manuel Young MD Signed: 03/22/2019 9:26 PM Workstation Name: [id number]
[2019-03-22] MEDS ORDERED: CALCIUM GLUCONATE 1,000 MG in NACL 0.9% 100 ML IV ONE (22:36)
[2019-03-22] MEDS ORDERED: D50W (25GM) Syringe IV ONE ×3 (22:38→22:49)
[2019-03-22] MEDS ORDERED: KIONEX PO ONE (22:38)
[2019-03-22] MEDS ORDERED: HumuLIN R IV ONE (22:39)
[2019-03-22 23:36] LABS: Albumin 4.4 g/dL (3.9-5); Calcium 9.3 mg/dL (8.4-10.2)
[2019-03-23 00:12] LABS: Bilirubin,Urine NEG (Negative); Blood,Urine SM (Negative); Color,Urine Yellow (Yellow); Mucus,Urine FEW /HPF; Urobilinogen,Urine < 2.0 mg/dL (<2.0)
[2019-03-23 00:20] LABS: Amphetamine Screen,Urine PRESUMPTIVE NEGATIVE; Benzodiazepines Screen,Urine PRESUMPTIVE NEGATIVE; Cocaine Screen,Urine PRESUMPTIVE NEGATIVE; Methadone Screen,Urine PRESUMPTIVE NEGATIVE; Opiate Screen,Urine PRESUMPTIVE NEGATIVE
[2019-03-23 00:53] LABS: Cannabinoid Screen,Urine PRESUMPTIVE POSITIVE
[2019-03-23 01:03] LABS: Alanine Aminotransferase 8 units/L (7-56); Albumin 4.1 g/dL (3.9-5); BUN/Creatinine Ratio 4; Blood Urea Nitrogen 42 mg/dL (9-20); Calcium 7.6 mg/dL (8.4-10.2); Hemolysis Index 3
[2019-03-23 03:57] LABS: Alanine Aminotransferase 11 units/L (7-56); Albumin 4.1 g/dL (3.9-5); BUN/Creatinine Ratio 23; Blood Urea Nitrogen 21 mg/dL (9-20); Calcium 8.9 mg/dL (8.4-10.2); Hemolysis Index 34
[2019-03-23 04:29] VITALS: BP 107/65
== END 2019-03-23 04:46 | disposition home or self-care (01) ==
LOC: ED 20:35
DX: E87.5 Hyperkalemia (principal); N19 Unspecified kidney failure; J45.909 Unspecified asthma, uncomplicated; F17.210 Nicotine dependence, cigarettes, uncomplicated; I25.10 Atherosclerotic heart disease of native coronary artery without angina pectoris; Z79.899 Other long term (current) drug therapy; Z88.6 Allergy status to analgesic agent
CPT/HCPCS: 36415; 71045; 80048; 80053; 80307; 81001; 82550; 82962; 83690; 84484; 85025; 93005; 93010; 96361; 96365; 96375; 99284; J0610; J2405; J7030; J1815

== ENCOUNTER 2020-06-23 14:40 | Emergency (ER) | payer MEDICAID ==
[2020-06-23 16:12] LABS: Alanine Aminotransferase 28 units/L (7-56); Albumin 4.1 g/dL (3.9-5); BUN/Creatinine Ratio 19; Blood Urea Nitrogen 15 mg/dL (9-20); Calcium 9.2 mg/dL (8.4-10.2); Hemolysis Index 6
[2020-06-23 16:14] LABS: Basophils # (Auto) 0.1 K/mm3 (0.0-0.1); Basophils % (Auto) 0.5 % (0.0-1.8); Eosinophils # (Auto) 0.2 K/mm3 (0.0-0.4); Eosinophils % (Auto) 2.2 % (0.0-4.3); Hematocrit 44.5 % (35.5-45.6); Lymphocytes # (Auto) 2.1 K/mm3 (1.2-5.4); Lymphocytes % (Auto) 19.2 % (13.4-35.0); Mean Corpuscular HGB Conc 34 % (32-34); Mean Corpuscular Volume 93 fl (84-94); Monocytes # (Auto) 0.6 K/mm3 (0.0-0.8); Monocytes % (Auto) 5.7 % (0.0-7.3); Platelet Count 193 K/mm3 (140-440); Red Blood Count 4.77 M/mm3 (3.65-5.03); Red Cell Distribution Width 13.1 % (13.2-15.2)
[2020-06-23] MEDS ORDERED: KETOROLAC 30 MG/1 ML INJ IV ONE (23:36)
[2020-06-23] MEDS ORDERED: ONDANSETRON 4 MG/2 ML INJ IV ONE (23:36)
[2020-06-23] MEDS ORDERED: SODIUM CHLORIDE 0.9% 1000 ML 1,000 ML IV ONE (23:36)
[2020-06-24 00:03] VITALS: BP 149/80
[2020-06-24 00:08] LABS: Bilirubin,Urine NEG (Negative); Blood,Urine NEG (Negative); Color,Urine Yellow (Yellow); Mucus,Urine FEW /HPF; Protein,Urine <15 mg/dL mg/dL (Negative); Urobilinogen,Urine < 2.0 mg/dL (<2.0)
--- NOTE | 2020-06-24 00:31 | Emergency Department Report ---
ED Abdominal Pain HPI - General Chief Complaint: Abdominal Pain Stated Complaint: ABD PAIN Time Seen by Provider: 06/23/20 23:26 Source: patient Mode of arrival: Ambulatory Limitations: No Limitations - History of Present Illness Initial Comments: 64-year male with a past medical history of asthma, CAD, PUD, chronic back pain, neck pain, no previous abdominal surgeries presents to the hospital planing of intermittent abdominal pain since this 11 AM. Pain is in the mid abdomen, stabbing, radiates to the epigastric area. Pain is moderate and has improved since ED stay. It is worse with palpation and movement of abdominal wall and torso. No alleviating factors reported he associated symptoms including fever, nausea, vomiting, diarrhea, melena, or hematochezia. Patient states that his stool was small and round today but denies constipation and states he has been having regular bowel movements. Denies dysuria or hematuria. Severity scale (0 -10): 5 - Related Data Home Medications Medication Instructions Recorded Confirmed Last Taken Aspirin [Aspirin BABY CHEW TAB] 81 mg PO QDAY 03/22/19 03/22/19 Unknown Previous Rx's Medication Instructions Recorded Last Taken Type Dicyclomine [Bentyl] 20 mg PO QID #10 tablet 09/28/19 Unknown Rx Ondansetron [Zofran Odt] 4 mg PO Q8HR #10 tab.rapdis 09/28/19 Unknown Rx Pantoprazole [Protonix] 40 mg PO QDAY #30 tablet 09/28/19 Unknown Rx Ciprofloxacin HCl [Ciprofloxacin 500 mg PO Q12HR #10 tab 06/24/20 Unknown Rx TAB] Promethazine [Phenergan] 25 mg PO Q6HR PRN #15 tab 06/24/20 Unknown Rx metroNIDAZOLE [Flagyl] 500 mg PO Q8HR #15 tablet 06/24/20 Unknown Rx traMADoL [Ultram 50 MG tab] 50 mg PO Q6HR PRN #20 tablet 06/24/20 Unknown Rx Allergies Allergy/AdvReac Type Severity Reaction Status Date / Time codeine Allergy Vomiting Verified 03/22/19 20:45 ED Review of Systems ROS: Stated complaint: ABD PAIN Other details as noted in HPI Comment: All other systems reviewed and negative ED Past Medical Hx - Past Medical History Previous Medical History?: Yes Hx Heart Attack/AMI: Yes Hx Asthma: Yes Additional medical history: Back pain, Neck pain, smokes cigarettes, occasional marijuana, none recently - Surgical History Past Surgical History?: Yes Additional Surgical History: eye - Social History Smoking Status: Never Smoker Substance Use Type: None - Medications Home Medications: Home Medications Medication Instructions Recorded Confirmed Last Taken Type Aspirin [Aspirin BABY CHEW TAB] 81 mg PO QDAY 03/22/19 03/22/19 Unknown History Dicyclomine [Bentyl] 20 mg PO QID #10 tablet 09/28/19 Unknown Rx Ondansetron [Zofran Odt] 4 mg PO Q8HR #10 tab.rapdis 09/28/19 Unknown Rx Pantoprazole [Protonix] 40 mg PO QDAY #30 tablet 09/28/19 Unknown Rx Ciprofloxacin HCl [Ciprofloxacin 500 mg PO Q12HR #10 tab 06/24/20 Unknown Rx TAB] Promethazine [Phenergan] 25 mg PO Q6HR PRN #15 tab 06/24/20 Unknown Rx metroNIDAZOLE [Flagyl] 500 mg PO Q8HR #15 tablet 06/24/20 Unknown Rx traMADoL [Ultram 50 MG tab] 50 mg PO Q6HR PRN #20 tablet 06/24/20 Unknown Rx ED Physical Exam - General Limitations: No Limitations - Other Other exam information: General: No acute distress Head: Atraumatic Eyes: normal appearance ENT: Moist mucous membranes Neck: Normal appearance, no midline tenderness Chest: Clear to auscultation bilaterally CV: Regular rate and rhythm Abdomen: Soft, normal bowel sounds, left lower quadrant and left mid abdomen tenderness to palpate, nondistended, no rebound or guarding Back: Normal inspection Extremity: Normal inspection, full range of motion Neuro: Alert O x 3, no facial asymmetry, speech clear, no gross motor sensory deficit Psych: Appropriate behavior Skin: No rash ED Course Vital Signs 06/23/20 06/23/20 15:00 23:58 Temperature 97.9 F Pulse Rate 69 80 Respiratory 18 16 Rate Blood Pressure 124/91 Blood Pressure 149/80 [Left] O2 Sat by Pulse 97 100 Oximetry - Reevaluation(s) Reevaluation #1: 06/24/20 01:40 Patient did receive pain relief after ED meds ED Medical Decision Making - Lab Data Result diagrams: 06/23/20 15:38 06/23/20 15:38 Lab Results 06/23/20 06/23/20 06/23/20 Range/Units 15:38 15:38 15:38 WBC 11.2 H (4.5-11.0) K/mm3 RBC 4.77 (3.65-5.03) M/mm3 Hgb 15.0 (11.8-15.2) gm/dl Hct 44.5 (35.5-45.6) % MCV 93 (84-94) fl MCH 32 (28-32) pg MCHC 34 (32-34) % RDW 13.1 L (13.2-15.2) % Plt Count 193 (140-440) K/mm3 Lymph % (Auto) 19.2 (13.4-35.0) % [place] % (Auto) 5.7 (0.0-7.3) % Eos % (Auto) 2.2 (0.0-4.3) % Baso % (Auto) 0.5 (0.0-1.8) % Lymph # (Auto) 2.1 (1.2-5.4) K/mm3 [place] # (Auto) 0.6 (0.0-0.8) K/mm3 Eos # (Auto) 0.2 (0.0-0.4) K/mm3 Baso # (Auto) 0.1 (0.0-0.1) K/mm3 Seg Neutrophils % 72.4 H (40.0-70.0) % Seg Neutrophils # 8.1 H (1.8-7.7) K/mm3 Sodium 138 (137-145) mmol/L Potassium 4.6 (3.6-5.0) mmol/L Chloride 102.4 (98-107) mmol/L Carbon Dioxide 28 (22-30) mmol/L Anion Gap 12 mmol/L BUN 15 (9-20) mg/dL Creatinine 0.8 (0.8-1.3) mg/dL Estimated GFR > 60 ml/min BUN/Creatinine Ratio 19 % Glucose 88 (75-100) mg/dL Calcium 9.2 (8.4-10.2) mg/dL Total Bilirubin 0.30 (0.1-1.2) mg/dL AST 27 (5-40) units/L ALT 28 (7-56) units/L Alkaline Phosphatase 97 (35-129) units/L Total Protein 6.8 (6.3-8.2) g/dL Albumin 4.1 (3.9-5) g/dL Albumin/Globulin Ratio 1.5 % Lipase 22 (13-60) units/L Urine Color (Yellow) Urine Turbidity (Clear) Urine pH (5.0-7.0) Ur Specific [place] (1.003-1.030) Urine Protein (Negative) mg/dL Urine Glucose (UA) (Negative) mg/dL Urine Ketones (Negative) mg/dL Urine Blood (Negative) Urine Nitrite (Negative) Urine Bilirubin (Negative) Urine Urobilinogen (<2.0) mg/dL Ur Leukocyte Esterase (Negative) Urine WBC (Auto) (0.0-6.0) /HPF Urine RBC (Auto) (0.0-6.0) /HPF Urine Mucus /HPF 06/23/20 Range/Units 23:58 WBC (4.5-11.0) K/mm3 RBC (3.65-5.03) M/mm3 Hgb (11.8-15.2) gm/dl Hct (35.5-45.6) % MCV (84-94) fl MCH (28-32) pg MCHC (32-34) % RDW (13.2-15.2) % Plt Count (140-440) K/mm3 Lymph % (Auto) (13.4-35.0) % [place] % (Auto) (0.0-7.3) % Eos % (Auto) (0.0-4.3) % Baso % (Auto) (0.0-1.8) % Lymph # (Auto) (1.2-5.4) K/mm3 [place] # (Auto) (0.0-0.8) K/mm3 Eos # (Auto) (0.0-0.4) K/mm3 Baso # (Auto) (0.0-0.1) K/mm3 Seg Neutrophils % (40.0-70.0) % Seg Neutrophils # (1.8-7.7) K/mm3 Sodium (137-145) mmol/L Potassium (3.6-5.0) mmol/L Chloride (98-107) mmol/L Carbon Dioxide (22-30) mmol/L Anion Gap mmol/L BUN (9-20) mg/dL Creatinine (0.8-1.3) mg/dL Estimated GFR ml/min BUN/Creatinine Ratio % Glucose (75-100) mg/dL Calcium (8.4-10.2) mg/dL Total Bilirubin (0.1-1.2) mg/dL AST (5-40) units/L ALT (7-56) units/L Alkaline Phosphatase (35-129) units/L Total Protein (6.3-8.2) g/dL Albumin (3.9-5) g/dL Albumin/Globulin Ratio % Lipase (13-60) units/L Urine Color Yellow (Yellow) Urine Turbidity Clear (Clear) Urine pH 5.0 (5.0-7.0) Ur Specific [place] 1.023 (1.003-1.030) Urine Protein <15 mg/dl (Negative) mg/dL Urine Glucose (UA) Neg (Negative) mg/dL Urine Ketones Tr (Negative) mg/dL Urine Blood Neg (Negative) Urine Nitrite Neg (Negative) Urine Bilirubin Neg (Negative) Urine Urobilinogen < 2.0 (<2.0) mg/dL Ur Leukocyte Esterase Neg (Negative) Urine WBC (Auto) 1.0 (0.0-6.0) /HPF Urine RBC (Auto) 1.0 (0.0-6.0) /HPF Urine Mucus Few /HPF - Radiology Data Radiology results: report reviewed CT abdomen pelvis w con INDICATION: Patient complains of LEFT upper and lower quad abd pain.. TECHNIQUE: All CT scans at this location are performed using the following dose modulation technique: Automated exposure control. Helical slices were obtained through the abdomen and pelvis following the administration 100 cc of Omnipaque 300 COMPARISON: CT scan dated 10/30/2018 and 12/28/2018 FINDINGS: There is a stable 7 x 5 mm nodule in the left lower lobe. There is a 1 cm nodule in the right lower lobe adjacent to the diaphragm. This measured 8 mm previously. The liver, spleen, pancreas, adrenal glands, and kidneys show no acute abnormality. The aorta is normal in diameter. There is mild atherosclerotic disease. There is no obstruction, inflammation, or free air. There are no abnormal fluid collections. Pelvis: There is a small amount of free fluid in the dependent portion of the pelvis. The appendix is unremarkable. There is mild wall thickening noted in the distal sigmoid colon and rectum suggesting colitis. There is no adenopathy. On review of bone windows, no acute osseous abnormalities are seen. IMPRESSION: 1. There is mild wall thickening in the distal colon characteristic of colitis. Small amount of free fluid in the pelvis. There is no free air. There is a 1 cm nodule in the right lower lobe the lung. This has shown mild increase in size since 12/28/2018. There is a small stable nodule in the left lower lung zone PET/CT scan is recommended to further evaluate. - Medical Decision Making CT suggestive of colitis. No acute lab or urine abnormality. Patient treated with normal saline, Toradol, and Zofran in the ED. Will be discharged on antibiotics and pain medication Critical Care Time: No Critical care attestation.: If time is entered above; I have spent that time in minutes in the direct care of this critically ill patient, excluding procedure time. ED Disposition Clinical Impression: Colitis, Abdominal pain Disposition: TO HOME OR SELFCARE Is pt being admited?: No Does the pt Need Aspirin: No Condition: Stable Instructions: Acute Abdominal Pain (ED), Infectious Colitis (ED) Additional Instructions: Take the medication as prescribed. Follow-up with your doctor or doctor/clinic provided. Return if symptoms worsen as indicated by your discharge instructions. Prescriptions: Ciprofloxacin HCl [Ciprofloxacin TAB] 500 mg PO Q12HR #10 tab metroNIDAZOLE [Flagyl] 500 mg PO Q8HR #15 tablet Promethazine [Phenergan] 25 mg PO Q6HR PRN #15 tab PRN Reason: Nausea traMADoL [Ultram 50 MG tab] 50 mg PO Q6HR PRN #20 tablet PRN Reason: Pain Referrals: [facility] MD TAMMIE [Primary Care Provider] - 3-5 Days WILLAM ROBBINS MD [Staff Physician] - 3-5 Days (GI (gastroenterology) doctor) Time of Disposition: 01:39
--- NOTE | 2020-06-24 01:01 | Cat Scan Report ---
CT abdomen pelvis w con INDICATION: Patient complains of LEFT upper and lower quad abd pain.. TECHNIQUE: All CT scans at this location are performed using the following dose modulation technique: Automated exposure control. Helical slices were obtained through the abdomen and pelvis following the administr ation 100 cc of Omnipaque 300 COMPARISON: CT scan dated 10/30/2018 and 12/28/2018 FINDINGS: There is a stable 7 x 5 mm nodule in the left lower lobe. There is a 1 cm nodule in the right lower l obe adjacent to the diaphragm. This measured 8 mm previously. The liver, spleen, pancreas, adrenal glands, and kidneys show no acute abnormality. The aorta is norm al in diameter. There is mild atherosclerotic disease. There is no obstruction, inflammation, or free air. There are no abnormal fluid collections. Pelvis: There is a small amount of free fluid in the dependent portion of the pelvis. The appendix is unremarkable. There is mild wall thickening noted in the distal sigmoid colon and rectum suggesting colitis. There is no adenopathy. On review of bone windows, no acute osseous abnormalities are seen. IMPRESSION: 1. There is mild wall thickening in the distal colon characteristic of colitis. Small amount of free fluid in the pelvis. There is no free air. There is a 1 cm nodule in the right lower lobe the lung. This has shown mild increase in size since . There is a small stable nodule in the left lower lung zone PET/CT scan is recommended to fu rther evaluate. Signer Name: Varghese Bennett MD Signed: 06/24/2020 12:56 AM Workstation Name: [id number]
[2020-06-24] MEDS ORDERED: metroNIDAZOLE 500 MG TAB PO ONE (01:29)
[2020-06-24] MEDS ORDERED: levoFLOXacin 750 MG TAB PO ONE (01:29)
== END 2020-06-24 02:00 | disposition home or self-care (01) ==
LOC: ED 14:40
DX: K52.9 Noninfective gastroenteritis and colitis, unspecified (principal); R10.13 Epigastric pain; I25.2 Old myocardial infarction; J45.909 Unspecified asthma, uncomplicated; Z98.890 Other specified postprocedural states; Z79.2 Long term (current) use of antibiotics; Z79.899 Other long term (current) drug therapy; Z88.8 Allergy status to other drugs, medicaments and biological substances
CPT/HCPCS: 36415; 74177; 80053; 81001; 83690; 85025; 96361; 96374; 96375; 99284; J1885; J2405; J7030; Q9967